=== PATIENT | female | born 1945 | race Caucasian/White ===

== ENCOUNTER → 2018-11-02 | Outpatient (CLI) | payer MEDICARE ==
--- NOTE | 2018-11-02 11:12 | RAD ---
EXAM: PA and Lateral Views of the Chest DATE: 11/02/2018 12:00 AM INDICATION: Cough, shortness of air COMPARISON: No Prior FINDINGS: The heart is not enlarged. Atherosclerotic calcifications of the tortuous aorta are seen. Linear opacities are seen bilaterally. No lobar consolidation. No pleural effusion or pneumothorax. IMPRESSION: Bilateral linear opacities, possibly scarring/atelectasis although given the interstitial predominance may also represent atypical infectious/inflammatory process. Electronically signed by: Franc Kirby MD (11/02/2018 11:09 AM) [facility]
== END | disposition home or self-care (01) ==
LOC: RAD 09:57
PROVIDERS: ATTEND Internal Medicine Pulmonary Disease
DX: R05 Cough (principal); I70.0 Atherosclerosis of aorta
CPT/HCPCS: 71046

== ENCOUNTER 2019-03-28 15:08 | Inpatient (IN) | payer MEDICARE ==
[~2019-03-28] VITALS: Ht 149.9 cm; Wt 77.8 kg
[2019-03-28] MEDS ORDERED: ONDANSETRON PF 4 MG/2 ML VIAL. IV ONE (15:45)
[2019-03-28 15:48] LABS: BASO # 0.1 x10^3/uL (0.0-0.2); BASO % 1 % (0-3); EOS # 0.2 x10^3/uL (0.0-0.7); EOS % 2 % (0-3); HEMOGLOBIN 12.4 g/dL (12.0-15.5); LYMPH # 2.2 x10^3/uL (1.0-4.8); LYMPH % 18 % (24-48); MEAN CORPUSCULAR HEMOGLOBIN 27 pg (25-35); MEAN CORPUSCULAR HGB CONC 33 g/dL (31-37); MEAN CORPUSCULAR VOLUME 82 fL (79-100); MONO % 8 % (0-9); NEUT # 8.6 x10^3/uL (1.8-7.7); NEUT % 71 % (31-73); PLATELET COUNT 355 x10^3/uL (140-400); RED BLOOD COUNT 4.62 x10^6/uL (3.50-5.40); RED CELL DISTRIBUTION WIDTH 14.9 % (11.5-14.5)
--- NOTE | 2019-03-28 15:49 | PHYS DOC ---
Past Medical History Past Medical History: Depression, DVT, Fibromyalgia, High Cholesterol, Hypertension, Hypothyroid, Other Additional Past Medical Histor: sarcoidosis, HEP B positive, TB positive in 1970s, pneumothorax, PE Past Surgical History: Other Additional Past Surgical Histo: cardiac stent, back surgery, bilateral cateract removal Alcohol Use: Occasionally Drug Use: None Adult General Chief Complaint Chief Complaint: CHEST PAIN [facility] HPI Patient is a 73 year old female who presents by EMS with complaining of chest pain. Patient states she had sudden onset of nonexertional substernal chest pain that started about 2 hours prior to arrival as a sharp and constant pain with radiation to her back and associated with nausea, shortness of breath, dizziness and rated her pain 10 over 10. Patient states she took nitroglycerin x 3 without change of pain. Patient state EMS gave her 50 g of nasal fentanyl with improvement of her pain to 6/10. Patient had aspirin by herself in by EMS. Patient with she felt anxious and didn't feel good with shortness of breath twic e ago for several hours and didn't had a fall at shower and hit the left side of her chest and complaining of chest wall pain that getting worse with movement and breathing. Patient was seen by her primary care physician today regarding chest wall injury and had x-ray and EKG and was told that she doesn't have rib fracture. Patient states she has had episodes of mild chest pain previously but today her pain was worse than her usual. Review of Systems Review of Systems Constitutional: Denies fever or chills [] Eyes: Denies change in visual acuity, redness, or eye pain [] HENT: Denies nasal congestion or sore throat [] Respiratory: Denies cough reports shortness of breath [] Cardiovascular: No additional information not addressed in HPI [] GI: Denies abdominal pain, vomiting, bloody stools or diarrhea, reports nausea [] : Denies dysuria or hematuria [] Musculoskeletal: Denies back pain or joint pain [] Integument: Denies rash or skin lesions [] Neurologic: Denies headache, focal weakness or sensory changes [] Endocrine: Denies polyuria or polydipsia [] All other systems were reviewed and found to be within normal limits, except as documented in this note. Current Medications Current Medications Current Medications Medications (Trade) Dose Ordered Sig/Lexii Start Time Stop Time Status Last Admin Dose Admin Ondansetron HCl (Zofran) 4 mg 1X ONCE 03/28/19 15:45 03/28/19 15:46 DC 03/28/19 16:23 4 MG Allergies Allergies Allergies Coded Allergies Type Severity Reaction Last Updated Verified Penicillins Allergy Intermediate 03/28/19 Yes Soivrop-Pom-Ybd Reductase Inhibitor Allergy Intermediate 03/28/19 Yes adhesive tape Allergy Intermediate 03/28/19 Yes ampicillin Allergy Intermediate 03/28/19 Yes aripiprazole Allergy Intermediate 03/28/19 Yes atorvastatin Allergy Intermediate 03/28/19 Yes bupropion Allergy Intermediate 03/28/19 Yes cephalexin Allergy Intermediate 03/28/19 Yes divalproex sodium Allergy Intermediate 03/28/19 Yes gatifloxacin Allergy Intermediate 03/28/19 Yes latex Allergy Intermediate 03/28/19 Yes oxaprozin Allergy Intermediate 03/28/19 Yes rofecoxib Allergy Intermediate 03/28/19 Yes tetracycline Allergy Intermediate 03/28/19 Yes Uncoded Allergies Type Severity Reaction Last Updated Verified bandaids Allergy Unknown 03/28/19 myacins Allergy Unknown 03/28/19 Physical Exam Physical Exam Constitutional: Well developed, well nourished, mild distress, non-toxic appearance. [] HENT: Normocephalic, atraumatic. Eyes: PERRLA, EOMI, conjunctiva normal, no discharge. [] Neck: Normal range of motion, no tenderness, supple, no stridor. [] Cardiovascular:Heart rate regular rhythm, no murmur [] Lungs & Thorax: Bilateral breath sounds clear to auscultation, left lateral chest wall tenderness without emphysema or ecchymosis [] Abdomen: Bowel sounds normal, soft, no tenderness, no masses, no pulsatile masses. [] Skin: Warm, dry, no erythema, no rash. [] Back: No tenderness, no CVA tenderness. [] Extremities: No tenderness, no cyanosis, no clubbing, ROM intact, no edema. [] Neurologic: Alert and oriented X 3, no focal deficits noted. [] Psychologic: Affect normal, judgement normal, mood normal. [] Current Patient Data Vital Signs Vital Signs Date Time Temp Pulse Resp B/P (MAP) Pulse Ox O2 Delivery O2 Flow Rate FiO2 03/28/19 15:13 98.2 81 23 121/72 (88) 95 98.2 Lab Values Laboratory Tests Test 03/28/19 15:40 White Blood Count 12.0 x10^3/uL (4.0-11.0) H Red Blood Count 4.62 x10^6/uL (3.50-5.40) Hemoglobin 12.4 g/dL (12.0-15.5) Hematocrit 38.0 % (36.0-47.0) Mean Corpuscular Volume 82 fL (79-100) Mean Corpuscular Hemoglobin 27 pg (25-35) Mean Corpuscular Hemoglobin Concent 33 g/dL (31-37) Red Cell Distribution Width 14.9 % (11.5-14.5) H Platelet Count 355 x10^3/uL (140-400) Neutrophils (%) (Auto) 71 % (31-73) Lymphocytes (%) (Auto) 18 % (24-48) L Monocytes (%) (Auto) 8 % (0-9) Eosinophils (%) (Auto) 2 % (0-3) Basophils (%) (Auto) 1 % (0-3) Neutrophils # (Auto) 8.6 x10^3/uL (1.8-7.7) H Lymphocytes # (Auto) 2.2 x10^3/uL (1.0-4.8) Monocytes # (Auto) 1.0 x10^3/uL (0.0-1.1) Eosinophils # (Auto) 0.2 x10^3/uL (0.0-0.7) Basophils # (Auto) 0.1 x10^3/uL (0.0-0.2) D-Dimer (Charity) < 0.27 ug/mlFEU Sodium Level 138 mmol/L (136-145) Potassium Level 3.6 mmol/L (3.5-5.1) Chloride Level 101 mmol/L (98-107) Carbon Dioxide Level 27 mmol/L (21-32) Anion Gap 10 (6-14) Blood Urea Nitrogen 31 mg/dL (7-20) H Creatinine 1.6 mg/dL (0.6-1.0) H Estimated GFR (Cockcroft-Gault) 31.7 BUN/Creatinine Ratio 19 (6-20) Glucose Level 130 mg/dL (70-99) H Calcium Level 9.8 mg/dL (8.5-10.1) Magnesium Level 1.9 mg/dL (1.8-2.4) Total Bilirubin 0.2 mg/dL (0.2-1.0) Aspartate Amino Transferase (AST) 22 U/L (15-37) Alanine Aminotransferase (ALT) 23 U/L (14-59) Alkaline Phosphatase 95 U/L (46-116) Creatine Kinase 151 U/L (26-192) Troponin I Quantitative < 0.017 ng/mL (0.000-0.055) KF-Ovi-E-Type Natriuretic Peptide 67 pg/mL (0-124) Total Protein 8.3 g/dL (6.4-8.2) H Albumin 4.1 g/dL (3.4-5.0) Albumin/Globulin Ratio 1.0 (1.0-1.7) Lipase 94 U/L (73-393) Laboratory Tests 03/28/19 15:40 Laboratory Tests 03/28/19 15:40 EKG EKG EKG interpreted by me. EKG at 1550 showed normal sinus rhythm at rate of 78, inverted T in anterior and inferior leads, no acute ST and T-wave elevation Radiology/Procedures Radiology/Procedures [][facility] [address] [place], [place] [id number] IMAGING REPORT Signed PATIENT: ANNA STROUD ACCOUNT: [id number] : 1945 LOCATION: ER AGE: 73 SEX: F EXAM STATUS: REG ER ORD. PHYSICIAN: VICTOR M CHAVARRIA MD REASON: fall,Pt states chest pain and left mid,lower rib pain, fell Tuesday PROCEDURE: RIBS LEFT AND PA CHEST Three-view left rib detail series and PA view chest x-ray Clinical indications: Fall and chest pain of the mid and lower left side. FINDINGS: There is a nondisplaced fractures of the lateral aspect of the left third and fourth and fifth ribs. Chest x-ray demonstrates no acute lung infiltrate or pleural effusion or pneumothorax. The heart size and pulmonary vasculature and mediastinum and both amanda are unremarkable. IMPRESSION: Acute left rib cage fractures. Electronically signed by: Christin Rivera MD (03/28/2019 4:09 PM) [place] [id number] DICTATED and SIGNED BY: CHRISTIN RIVERA MD DATE: 03/28/19 160 Course & Med Decision Making Course & Med Decision Making Pertinent Labs and Imaging studies reviewed. (See chart for details) Evaluation of patient in ER showed 73-year-old female patient with heart score of 6 brought in by EMS because of chest pain and also had a chest wall injury 3 days ago. Patient had several left hip fracture. Patient treated with ni troglycerin at home and fentanyl by EMS and didn't want to have pain medication in ER. Cardiac enzymes was unremarkable.Patient requiring admission for further evaluation and treatment. Discussed with Dr. Allison who is in agreement with admission. Discussed findings and plan with patient and family, who acknowledge understanding and agreement. Dragon Disclaimer Dragon Disclaimer This electronic medical record was generated, in whole or in part, using a voice recognition dictation system. Departure Departure Impression: Primary Impression: Acute chest pain Additional Impressions: Ribs, multiple fractures Renal insufficiency Fall at home Disposition: ADMITTED INPATIENT (at 1620) Admitting Physician: DARRELL (Dr. Allison accepted admission at 1619) Condition: IMPROVED Referrals: JOE KITCHEN MD (PCP) The HEART Score for CP Pts HEART Score for Chest Pain: HEART Score for Chest Pain Response (Comments) Value History Moderately Suspicious 1 ECG Nonspecific Repolarizatio 1 Age > 65 2 Risk Factors >3 Risk Factors or Hx CAD 2 Troponin < Normal Limit 0 Total 6 Risk Factors: Risk Factors: DM, Current or recent (<one month) smoker, HTN, HLP, family history of CAD, obesity. Risk Scores: Score 0 - 3: 2.5% MACE over next 6 weeks - Discharge Home Score 4 - 6: 20.3% MACE over next 6 weeks - Admit for Clinical Observation Score 7 - 10: 72.7% MACE over next 6 weeks - Early Invasive Strategies Problem Qualifiers Additional Impressions: Ribs, multiple fractures Encounter type: sequela Fracture type: closed Laterality: left Qualified Codes: S22.42XS - Multiple fractures of ribs, left side, sequela Fall at home Encounter type: subsequent encounter Qualified Codes: W19.XXXD - Unspecified fall, subsequent encounter; Y92.009 - Unspecified place in unspecified non-institutional (private) residence as the place of occurrence of the external cause VICTOR M CHAVARRIA MD Mar 28, 2019 15:49
[2019-03-28 16:11] LABS: CALCIUM 9.8 mg/dL (8.5-10.1); CREATININE 1.6 mg/dL (0.6-1.0); GFR 31.7; POTASSIUM 3.6 mmol/L (3.5-5.1)
--- NOTE | 2019-03-28 16:12 | RAD ---
Three-view left rib detail series and PA view chest x-ray Clinical indications: Fall and chest pain of the mid and lower left side. FINDINGS: There is a nondisplaced fractures of the lateral aspect of the left third and fourth and fifth ribs. Chest x-ray demonstrates no acute lung infiltrate or pleural effusion or pneumothorax. The heart size and pulmonary vasculature and mediastinum and both amanda are unremarkable. IMPRESSION: Acute left rib cage fractures. Electronically signed by: Darell Rivera MD (03/28/2019 4:09 PM) [place] [id number]
[2019-03-28 16:17] LABS: ALBUMIN 4.1 g/dL (3.4-5.0); MAGNESIUM 1.9 mg/dL (1.8-2.4); TOTAL BILIRUBIN 0.2 mg/dL (0.2-1.0); TOTAL PROTEIN 8.3 g/dL (6.4-8.2)
--- NOTE | 2019-03-28 16:20 | PDOC1 ---
History and Physical Date of Admission Date of Admission DATE: 03/28/19 TIME: 16:19 Identification/Chief Complaint Chief Complaint SEEN IN ER, HX CAD /// STENT IN [place] 73 year old female who presents by EMS with complaining of chest pain. states she had sudden onset of nonexertional substernal chest pain that started about 2 hours prior to arrival as a sharp and constant pain with radiation to her back and associated with nausea, shortness of breath, dizziness and rated her pain 10 over 10. she took nitroglycerin x 3 without change of pain. Patient state EMS gave her 50 g of nasal fentanyl with improvement of her pain to 6/10. troponin i neg in er Past Medical History Past Medical History Past Medical History Past Medical History Past Medical History: Depression, DVT, Fibromyalgia, High Cholesterol, Hypertension, Hypothyroid, Other Additional Past Medical Histor: sarcoidosis, HEP B positive, TB positive in 1970s, pneumothorax, PE Past Surgical History: Other Additional Past Surgical Histo: cardiac stent, back surgery, bilateral cateract removal Alcohol Use: Occasionally Drug Use: None fhx cad Cardiovascular: CAD, Hyperlipidemia Hepatobiliary: No pertinent hx Musculoskeletal: Osteoarthritis Family History Family History: High Cholestrol Social History Smoke: Quit ALCOHOL: none Drugs: None Current Medications Current Medications Current Medications Ondansetron HCl (Zofran) 4 mg 1X ONCE IV ; Start 03/28/19 at 15:45; Stop 03/28/19 at 15:46; Status DC Allergies Allergies: Coded Allergies: Penicillins (Verified Allergy, Intermediate, 03/28/19) Fedkhxd-Skr-Fza Reductase Inhibitor (Verified Allergy, Intermediate, 03/28/19) adhesive tape (Verified Allergy, Intermediate, 03/28/19) ampicillin (Verified Allergy, Intermediate, 03/28/19) aripiprazole (Verified Allergy, Intermediate, 03/28/19) atorvastatin (Verified Allergy, Intermediate, 03/28/19) bupropion (Verified Allergy, Intermediate, 03/28/19) cephalexin (Verified Allergy, Intermediate, 03/28/19) divalproex sodium (Verified Allergy, Intermediate, 03/28/19) gatifloxacin (Verified Allergy, Intermediate, 03/28/19) latex (Verified Allergy, Intermediate, 03/28/19) oxaprozin (Verified Allergy, Intermediate, 03/28/19) rofecoxib (Verified Allergy, Intermediate, 03/28/19) tetracycline (Verified Allergy, Intermediate, 03/28/19) Uncoded Allergies: bandaids (Allergy, Unknown, 03/28/19) myacins (Allergy, Unknown, 03/28/19) ROS Review of System Review of Systems Review of Systems Constitutional: Denies fever or chills [] Eyes: Denies change in visual acuity, redness, or eye pain [] HENT: Denies nasal congestion or sore throat [] Respiratory: Denies cough reports shortness of breath [] Cardiovascular: No additional information not addressed in HPI [] GI: Denies abdominal pain, vomiting, bloody stools or diarrhea, reports nausea [] : Denies dysuria or hematuria [] Musculoskeletal: Denies back pain or joint pain [] Integument: Denies rash or skin lesions [] Neurologic: Denies headache, focal weakness or sensory changes [] Endocrine: Denies polyuria or polydipsia [] 14 pt systems were reviewed and found to be within normal limits, except as documented . Physical Exam General: Alert, Oriented X3, Cooperative, No acute distress HEENT: PERRLA Lungs: Clear to auscultation, Normal air movement Heart: S1S2, RRR, no thrills, no gallops, no murmurs Breasts: Not examined Abdomen: Normal bowel sounds, Soft, No tenderness Rectal Exam: not examined PELVIC: Examination not indicated Extremities: No clubbing, No cyanosis Skin: No breakdown Neuro: Normal speech, Cranial nerves 3-12 NL Psych/Mental Status: Mental status NL, Mood NL Vitals Vitals Vital Signs Date Time Temp Pulse Resp B/P (MAP) Pulse Ox O2 Delivery O2 Flow Rate FiO2 03/28/19 15:13 98.2 81 23 121/72 (88) 95 98.2 Labs Labs Laboratory Tests Test 03/28/19 15:40 White Blood Count 12.0 x10^3/uL (4.0-11.0) Red Blood Count 4.62 x10^6/uL (3.50-5.40) Hemoglobin 12.4 g/dL (12.0-15.5) Hematocrit 38.0 % (36.0-47.0) Mean Corpuscular Volume 82 fL (79-100) Mean Corpuscular Hemoglobin 27 pg (25-35) Mean Corpuscular Hemoglobin Concent 33 g/dL (31-37) Red Cell Distribution Width 14.9 % (11.5-14.5) Platelet Count 355 x10^3/uL (140-400) Neutrophils (%) (Auto) 71 % (31-73) Lymphocytes (%) (Auto) 18 % (24-48) Monocytes (%) (Auto) 8 % (0-9) Eosinophils (%) (Auto) 2 % (0-3) Basophils (%) (Auto) 1 % (0-3) Neutrophils # (Auto) 8.6 x10^3/uL (1.8-7.7) Lymphocytes # (Auto) 2.2 x10^3/uL (1.0-4.8) Monocytes # (Auto) 1.0 x10^3/uL (0.0-1.1) Eosinophils # (Auto) 0.2 x10^3/uL (0.0-0.7) Basophils # (Auto) 0.1 x10^3/uL (0.0-0.2) D-Dimer (Charity) < 0.27 ug/mlFEU Sodium Level 138 mmol/L (136-145) Potassium Level 3.6 mmol/L (3.5-5.1) Chloride Level 101 mmol/L (98-107) Carbon Dioxide Level 27 mmol/L (21-32) Anion Gap 10 (6-14) Blood Urea Nitrogen 31 mg/dL (7-20) Creatinine 1.6 mg/dL (0.6-1.0) Estimated GFR (Cockcroft-Gault) 31.7 BUN/Creatinine Ratio 19 (6-20) Glucose Level 130 mg/dL (70-99) Calcium Level 9.8 mg/dL (8.5-10.1) Laboratory Tests Test 03/28/19 15:40 White Blood Count 12.0 x10^3/uL (4.0-11.0) Red Blood Count 4.62 x10^6/uL (3.50-5.40) Hemoglobin 12.4 g/dL (12.0-15.5) Hematocrit 38.0 % (36.0-47.0) Mean Corpuscular Volume 82 fL (79-100) Mean Corpuscular Hemoglobin 27 pg (25-35) Mean Corpuscular Hemoglobin Concent 33 g/dL (31-37) Red Cell Distribution Width 14.9 % (11.5-14.5) Platelet Count 355 x10^3/uL (140-400) Neutrophils (%) (Auto) 71 % (31-73) Lymphocytes (%) (Auto) 18 % (24-48) Monocytes (%) (Auto) 8 % (0-9) Eosinophils (%) (Auto) 2 % (0-3) Basophils (%) (Auto) 1 % (0-3) Neutrophils # (Auto) 8.6 x10^3/uL (1.8-7.7) Lymphocytes # (Auto) 2.2 x10^3/uL (1.0-4.8) Monocytes # (Auto) 1.0 x10^3/uL (0.0-1.1) Eosinophils # (Auto) 0.2 x10^3/uL (0.0-0.7) Basophils # (Auto) 0.1 x10^3/uL (0.0-0.2) D-Dimer (Charity) < 0.27 ug/mlFEU Sodium Level 138 mmol/L (136-145) Potassium Level 3.6 mmol/L (3.5-5.1) Chloride Level 101 mmol/L (98-107) Carbon Dioxide Level 27 mmol/L (21-32) Anion Gap 10 (6-14) Blood Urea Nitrogen 31 mg/dL (7-20) Creatinine 1.6 mg/dL (0.6-1.0) Estimated GFR (Cockcroft-Gault) 31.7 BUN/Creatinine Ratio 19 (6-20) Glucose Level 130 mg/dL (70-99) Calcium Level 9.8 mg/dL (8.5-10.1) Images Images Three-view left rib detail series and PA view chest x-ray Clinical indications: Fall and chest pain of the mid and lower left side. FINDINGS: There is a nondisplaced fractures of the lateral aspect of the left third and fourth and fifth ribs. Chest x-ray demonstrates no acute lung infiltrate or pleural effusion or pneumothorax. The heart size and pulmonary vasculature and mediastinum and both amanda are unremarkable. IMPRESSION: Acute left rib cage fractures. Electronically signed by: Christin Rivera MD (03/28/2019 4:09 PM) [place] [id number] DICTATED and SIGNED BY: CHRISTIN RIVERA MD VTE Prophylaxis Ordered VTE Prophylaxis Devices: Yes VTE Pharmacological Prophylaxi: Yes Assessment/Plan Assessment/Plan IMPRESSION: CHEST PAIN HX CAD Recent fall in shower 2 days [employer] Acute left rib cage fractures. SEC TO FALL ckd stage 3 remote PE ON XARELTO PLAN ADMIT SERIAL TROPONIN I TELE, cvc bed Cardiology consult echo frequent labs home meds dvt prophylaxis 55 min pt exam, chart review, > 50% of time spent with exam, chart review, pt care coordination ALEJANDRO RODRIGUEZ MD Mar 28, 2019 16:20
[2019-03-28] MEDS ORDERED: fentaNYL PF VIAL 100 MCG/2 ML VIAL ONE (16:49)
[2019-03-28] MEDS ORDERED: fentaNYL PF VIAL 100 MCG/2 ML VIAL IVP ONE (17:00)
[2019-03-28 17:40] VITALS: BP 151/87
[2019-03-28] MEDS ORDERED: ONDANSETRON PF 4 MG/2 ML VIAL. IVP PRN (17:45)
[2019-03-28] MEDS ORDERED: ACET325T9 PO (18:20)
[2019-03-28] MEDS ORDERED: LOPE2CAP PO (18:20)
[2019-03-28] MEDS ORDERED: LOSA100T14 PO (18:20)
[2019-03-28] MEDS ORDERED: NITR0.4T24 SL (18:20)
[2019-03-28] MEDS ORDERED: ISOS30TA4 PO (18:20)
[2019-03-28] MEDS ORDERED: ESCITALOPRAM OX20 MG PO (18:20)
[2019-03-28] MEDS ORDERED: LEVO100T5 PO (18:20)
[2019-03-28] MEDS ORDERED: AMLO10TA8 PO (18:20)
[2019-03-28] MEDS ORDERED: TRAZ-86 PO (18:20)
[2019-03-28] MEDS ORDERED: ASPI-630 PO (18:20)
[2019-03-28] MEDS ORDERED: RIVA20TA2 PO (18:20)
[2019-03-28] MEDS ORDERED: METO-247 PO (18:20)
[2019-03-28] MEDS ORDERED: HYDR-2761 PO (18:20)
[2019-03-28] MEDS ORDERED: MELA3TAB56 PO (18:20)
[2019-03-28] MEDS ORDERED: cloNIDine HCL 0.1 MG TABLET PO PRN (18:30)
[2019-03-28] MEDS ORDERED: 0.9 % SODIUM CHLORIDE 10 ML DISP.SYRIN. IV PRN (18:30)
[2019-03-28] MEDS ORDERED: ACETAMINOPHEN 325 MG TABLET. PO PRN ×2 (18:30→19:15)
[2019-03-28] MEDS ORDERED: MAG HYDROX/ALUMINUM HYD/SIMETH 30 ML ORAL.SUSP PO PRN (18:30)
[2019-03-28] MEDS ORDERED: LORazepam 0.5 MG TABLET PO PRN (18:30)
[2019-03-28] MEDS ORDERED: ZOLPIDEM 5 MG TABLET. PO PRN (18:30)
[2019-03-28] MEDS ORDERED: DOCUSATE SODIUM 100 MG CAPSULE. PO PRN (18:30)
[2019-03-28 18:46] VITALS: BP 116/82
[2019-03-28] MEDS ORDERED: NITROGLYCERIN SUBLINGUAL 0.4 MG BOTTLE OF 25. SL PRN (19:15)
[2019-03-28] MEDS ORDERED: LOPERAMIDE 2 MG CAPSULE PO PRN (19:15)
[2019-03-28] MEDS: IPRATRPIUM/ALBUTEROL 0.5/2.5MG 3 ML NEBU. NEB SCH ×2 (19:34→23:41)
[2019-03-28] MEDS ORDERED: DESI10TA PO (19:47)
[2019-03-28] MEDS ORDERED: DESIPRAMINE HCL 10 MG TABLET PO SCH (21:00)
[2019-03-28] MEDS: traZODone 100 MG TABLET. PO SCH (21:32)
[2019-03-28 21:47] LABS: BILIRUBIN,URINE NEGATIVE (NEG); CLARITY,URINE CLOUDY; COLOR,URINE YELLOW; NITRITE,URINE POSITIVE (NEG); PROTEIN,URINE 30 mg/dL (NEG-TRACE); UROBILINOGEN,URINE 0.2 mg/dL (0.2 mg/dL)
[2019-03-28 21:55] LABS: BACTERIA,URINE MANY /HPF (0-FEW); SQUAMOUS EPITHELIAL CELL,UR MANY /LPF; WBC,URINE TNTC /HPF (0-4)
[2019-03-28 21:56] LABS: HYALINE CASTS, URINE OCCASIONAL /HPF
[2019-03-28 23:01] VITALS: BP 119/68
[2019-03-29 03:00] VITALS: BP 99/56
[2019-03-29] MEDS: IPRATRPIUM/ALBUTEROL 0.5/2.5MG 3 ML NEBU. NEB SCH (04:00)
[2019-03-29] MEDS: fentaNYL PF VIAL 100 MCG/2 ML VIAL IVP PRN ×2 (04:00→10:54)
[2019-03-29] MEDS ORDERED: INFLUENZA VAX SCREEN BY RX. MC PRN (04:45)
[2019-03-29 05:39] LABS: BASO % 0 % (0-3); EOS # 0.2 x10^3/uL (0.0-0.7); EOS % 3 % (0-3); HEMATOCRIT 36.4 % (36.0-47.0); HEMOGLOBIN 12.1 g/dL (12.0-15.5); LYMPH % 46 % (24-48); MEAN CORPUSCULAR HEMOGLOBIN 27 pg (25-35); MEAN CORPUSCULAR HGB CONC 33 g/dL (31-37); MEAN CORPUSCULAR VOLUME 83 fL (79-100); MONO # 0.7 x10^3/uL (0.0-1.1); MONO % 8 % (0-9); NEUT # 3.9 x10^3/uL (1.8-7.7); NEUT % 44 % (31-73); PLATELET COUNT 309 x10^3/uL (140-400); WHITE BLOOD COUNT 8.8 x10^3/uL (4.0-11.0)
[2019-03-29 05:52] LABS: CALCIUM 9.3 mg/dL (8.5-10.1); CREATININE 1.1 mg/dL (0.6-1.0); GFR 48.8
[2019-03-29 05:57] LABS: ALBUMIN 3.7 g/dL (3.4-5.0); ALBUMIN/GLOBULIN RATIO 0.9 (1.0-1.7); TOTAL BILIRUBIN 0.3 mg/dL (0.2-1.0); TOTAL PROTEIN 7.8 g/dL (6.4-8.2)
[2019-03-29] MEDS: LEVOTHYROXINE 100 MCG TABLET PO SCH (06:24)
[2019-03-29 07:00] VITALS: BP 135/69
--- NOTE | 2019-03-29 07:26 | EKG ---
[facility] [address] [place] [address] Test Date: 2019-03-28 Test Time: 15:15:12 Pat Name: ANNA STROUD Department: Room: 205 1 Gender: F Account Planner: : 1945 Requested By: VICTOR M CHAVARRIA Order Number: [id number] Reading MD: Nathanael Pettit MD Measurements Intervals [place] Rate: 78 P: 65 [place]: 190 QRS: 21 QRSD: 94 T: -15 QT: 378 QTc: 434 Interpretive Statements SINUS RHYTHM QRS(T) CONTOUR ABNORMALITY CONSISTENT WITH INFERIOR INFARCT AGE UNDETERMINED T ABNORMALITY IN ANTERIOR LEADS ABNORMAL ECG Electronically Signed On 04-03-2019 15:38:29 CDT by Nathanael Pettit MD
[2019-03-29] MEDS ORDERED: ALBUTEROL SULFATE 2.5 MG/3 ML NEBU. NEB PRN (08:15)
[2019-03-29] MEDS ORDERED: FLU VAX QS 2019-20 (36MOS+)/PF 0.5 ML SYRINGE. VAX IM ONE (09:00)
[2019-03-29] MEDS ORDERED: ENOXAPARIN 40 MG/0.4 ML SYRINGE. SQ SCH (09:00)
[2019-03-29] MEDS: ISOSORBIDE MONONITRATE ER 30 MG TAB.ER.24H PO SCH (09:41)
[2019-03-29] MEDS: METOPROLOL SUCC 24HR ER 100 MG TAB.ER.24H. PO SCH (09:41)
[2019-03-29] MEDS: ASPIRIN CHEWABLE 81 MG TABLET. PO SCH (09:41)
[2019-03-29] MEDS: amLODIPine BESYLATE 10 MG TABLET PO SCH (09:41)
[2019-03-29] MEDS: CITALOPRAM 20 MG TABLET. PO SCH (09:42)
[2019-03-29] MEDS: LOSARTAN POTASSIUM 50 MG TABLET. PO SCH (09:42)
--- NOTE | 2019-03-29 10:33 | RAD ---
CT HEAD WO CONTRAST History: Headache, fall Comparison: None. Technique: Noncontrast CT imaging was performed of the head. Exposure: One or more of the following individualized dose reduction techniques were utilized for this examination: 1. Automated exposure control 2. Adjustment of the mA and/or kV according to patient size 3. Use of iterative reconstruction technique. Findings: No acute extra-axial or parenchymal hemorrhage is identified. There is no significant intra-axial mass effect, midline shift, or extra-axial fluid collection. The mauricio-white differentiation of the major vascular territories is preserved. There is scattered moderate ill-defined low-density of the supratentorial parenchyma bilaterally somewhat greater of the frontal lobes. The ventricles, sulci, and cisterns are within normal limits in size and configuration. The mastoid air cells and the visualized paranasal sinuses are aerated. No acute calvarial abnormality is identified. Impression: 1. There is no evidence of acute intracranial hemorrhage. There is scattered ill-defined low-density of the supratentorial parenchyma bilaterally, nonspecific findings most commonly due to chronic microvascular ischemic disease in a patient this age. Electronically signed by: Olaf Spencer MD (03/29/2019 10:30 AM) [facility]
--- NOTE | 2019-03-29 10:35 | PDOC2 ---
CINDI SELBY [employer] MA[employer]GER 03/29/19 1035: CARDIAC CONSULT DATE OF CONSULT Date of Consult DATE: 03/29/19 TIME: 0900 REASON FOR CONSULT Reason for Consult: Chest pain REFERRING PHYSICIAN Referring Physician: Fullbright SOURCE Source: Chart review, Patient HISTORY OF PRESENT ILLNESS HISTORY OF PRESENT ILLNESS This is a pleasant 73 yo female admitted for complains of fall and chest pain. Her chest pain occurred 2 days ago. She was having midchest pressure that was nonradidating and sensation of indigestion. Also was diaphoretic at that time. She took x1 NTG SL and decided to get in the tub which she thought it may help her discomfort. Also notable for nausea. She then got out of the tub and slipped and landed her left ribcage at the edge of the tub. After that she developed bruis to her left upper arm and left ribcage and also obtain a contusion to her left anterior finch but no no noted fractures or dislocations. Her ROMs are intact. Also reports of left temporal tenderness but she doesnt believe she hit her head. 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 She also had a stent placed in 2008. In the last month she has been having more fatigue and also with some SOA with exertion but no exertional CP. Yesterday she went to her PCP due to her chest pain and ribcage pain and EKG and CXR but no copy was in the chart. She was told that she did not have a rib fracture but repeat imaging in ED showed that she has nondisplaced rib fractures. Her chest pressure yesterday came back with the same associated symptoms and she took 3 NTG and decided to come to ED. PAST MEDICAL HISTORY Cardiovascular: CAD, HTN, Hyperlipidemia (intolerant to statins) Pulmonary: Pulmonary embolus (2010), Other (TB in ; sarcoidosis; pneumothorax) CENTRAL NERVOUS SYSTEM: CVA, Migraine GI: No pertinent hx Heme/Onc: Other (multiple past DVTs) Hepatobiliary: No pertinent hx, Hep A/B/C (B) Psych: Depression Musculoskeletal: low back pain, Osteoarthritis, Other (failed back syndrome) Rheumatologic: Fibromyalgia Infectious disease: No pertinent hx ENT: No pertinent hx Renal/: No pertinent hx Endocrine: Hypothyroidism Dermatology: No pertinent hx PAST SURGICAL HISTORY Past Surgical History: Cataract Removal, Other (PCI/stent 2009; Lumbar fusion; lung biopsy) FAMILY HISTORY Family History: Coronary Artery Disease (mother in her 40s) SOCIAL HISTORY Smoke: No ALCOHOL: none Drugs: None Lives: with Family CURRENT MEDICATIONS CURRENT MEDICATIONS Current Medications Medications (Trade) Dose Ordered Sig/Lexii Route PRN Reason Start Time Stop Time Status Last Admin Dose Admin Ondansetron HCl (Zofran) 4 mg 1X ONCE IV 03/28/19 15:45 03/28/19 15:46 DC 03/28/19 16:23 Fentanyl Citrate (Fentanyl 2ml Vial) 50 mcg 1X ONCE IVP 03/28/19 17:00 03/28/19 17:01 DC 03/28/19 16:52 Fentanyl Citrate (Fentanyl 2ml Vial) 50 mcg PRN Q2HR PRN IVP PAIN 03/28/19 17:45 03/29/19 04:00 Albuterol/ Ipratropium (Duoneb) 3 ml Q4HRS NEB 03/28/19 20:00 03/29/19 07:40 DC 03/29/19 04:00 Amlodipine Besylate (Norvasc) 10 mg DAILY PO 03/29/19 09:00 03/29/19 09:41 Aspirin (Children'S Aspirin) 81 mg DAILY PO 03/29/19 09:00 03/29/19 09:41 Isosorbide Mononitrate (Imdur) 30 mg DAILY PO 03/29/19 09:00 03/29/19 09:41 Levothyroxine Sodium (Synthroid) 100 mcg DAILY06 PO 03/29/19 06:00 03/29/19 06:24 Metoprolol Succinate (Toprol Xl) 100 mg DAILY PO 03/29/19 09:00 03/29/19 09:41 Trazodone HCl (Desyrel) 100 mg HS PO 03/28/19 21:00 03/28/19 21:32 Citalopram Hydrobromide (CeleXA) 40 mg DAILY PO 03/29/19 09:00 03/29/19 09:42 Losartan Potassium (Cozaar) 100 mg DAILY PO 03/29/19 09:00 03/29/19 09:42 Influenza Virus Vaccine Quadrival (Afluria Quad 2019-20 (3yr Up) Syringe) 0.5 ml ONCE ONCE VAX IM 03/29/19 09:00 03/29/19 09:05 DC 03/29/19 09:44 ALLERGIES ALLERGIES: Coded Allergies: Penicillins (Verified Allergy, Intermediate, 03/28/19) Didvhfx-Wlu-Add Reductase Inhibitor (Verified Allergy, Intermediate, 03/28/19) adhesive tape (Verified Allergy, Intermediate, 03/28/19) ampicillin (Verified Allergy, Intermediate, 03/28/19) aripiprazole (Verified Allergy, Intermediate, 03/28/19) atorvastatin (Verified Allergy, Intermediate, 03/28/19) bupropion (Verified Allergy, Intermediate, 03/28/19) cephalexin (Verified Allergy, Intermediate, 03/28/19) divalproex sodium (Verified Allergy, Intermediate, 03/28/19) gatifloxacin (Verified Allergy, Intermediate, 03/28/19) latex (Verified Allergy, Intermediate, 03/28/19) oxaprozin (Verified Allergy, Intermediate, 03/28/19) rofecoxib (Verified Allergy, Intermediate, 03/28/19) tetracycline (Verified Allergy, Intermediate, 03/28/19) Uncoded Allergies: bandaids (Allergy, Unknown, 03/28/19) myacins (Allergy, Unknown, 03/28/19) ROS Review of System 14 point ROS evaluated with pertinent positives noted per HPI PHYSICAL EXAM General: Alert, Oriented X3, Cooperative, No acute distress HEENT: Atraumatic, Mucous membr. moist/pink Lungs: Clear to auscultation, Normal air movement Heart: Regular rate (SR), Normal S1, Normal S2, Other (3/6 systolic murmur to FELIZ border) Abdomen: Soft, No tenderness Extremities: No cyanosis, No edema Skin: No breakdown, No significant lesion Neuro: Normal speech, Sensation intact Psych/Mental Status: Mental status NL, Mood NL MUSCULOSKELETAL: Osteoarthritic changes both hands VITALS/I&O VITALS/I&O: Vital Signs Date Time Temp Pulse Resp B/P (MAP) Pulse Ox O2 Delivery O2 Flow Rate FiO2 03/29/19 09:42 69 135/69 03/29/19 08:00 Room Air 03/29/19 07:00 97.9 18 92 97.9 I & O 03/28/19 03/28/19 03/29/19 15:00 23:00 07:00 Output Total 150 ml Balance -150 ml LABS Lab: Laboratory Tests Test 03/28/19 15:40 03/28/19 20:05 03/28/19 21:40 03/28/19 23:20 White Blood Count 12.0 x10^3/uL (4.0-11.0) H Red Blood Count 4.62 x10^6/uL (3.50-5.40) Hemoglobin 12.4 g/dL (12.0-15.5) Hematocrit 38.0 % (36.0-47.0) Mean Corpuscular Volume 82 fL (79-100) Mean Corpuscular Hemoglobin 27 pg (25-35) Mean Corpuscular Hemoglobin Concent 33 g/dL (31-37) Red Cell Distribution Width 14.9 % (11.5-14.5) H Platelet Count 355 x10^3/uL (140-400) Neutrophils (%) (Auto) 71 % (31-73) Lymphocytes (%) (Auto) 18 % (24-48) L Monocytes (%) (Auto) 8 % (0-9) Eosinophils (%) (Auto) 2 % (0-3) Basophils (%) (Auto) 1 % (0-3) Neutrophils # (Auto) 8.6 x10^3/uL (1.8-7.7) H Lymphocytes # (Auto) 2.2 x10^3/uL (1.0-4.8) Monocytes # (Auto) 1.0 x10^3/uL (0.0-1.1) Eosinophils # (Auto) 0.2 x10^3/uL (0.0-0.7) Basophils # (Auto) 0.1 x10^3/uL (0.0-0.2) D-Dimer (Charity) < 0.27 ug/mlFEU Sodium Level 138 mmol/L (136-145) Potassium Level 3.6 mmol/L (3.5-5.1) Chloride Level 101 mmol/L (98-107) Carbon Dioxide Level 27 mmol/L (21-32) Anion Gap 10 (6-14) Blood Urea Nitrogen 31 mg/dL (7-20) H Creatinine 1.6 mg/dL (0.6-1.0) H Estimated GFR (Cockcroft-Gault) 31.7 BUN/Creatinine Ratio 19 (6-20) Glucose Level 130 mg/dL (70-99) H Calcium Level 9.8 mg/dL (8.5-10.1) Magnesium Level 1.9 mg/dL (1.8-2.4) Total Bilirubin 0.2 mg/dL (0.2-1.0) Aspartate Amino Transferase (AST) 22 U/L (15-37) Alanine Aminotransferase (ALT) 23 U/L (14-59) Alkaline Phosphatase 95 U/L (46-116) Creatine Kinase 151 U/L (26-192) Troponin I Quantitative < 0.017 ng/mL (0.000-0.055) < 0.017 ng/mL (0.000-0.055) < 0.017 ng/mL (0.000-0.055) EB-Fgm-A-Type Natriuretic Peptide 67 pg/mL (0-124) Total Protein 8.3 g/dL (6.4-8.2) H Albumin 4.1 g/dL (3.4-5.0) Albumin/Globulin Ratio 1.0 (1.0-1.7) Lipase 94 U/L (73-393) Urine Collection Type Unknown Urine Color Yellow Urine Clarity Cloudy Urine pH 5.0 Urine Specific [place] 1.025 Urine Protein 30 mg/dL (NEG-TRACE) Urine Glucose (UA) Negative mg/dL (NEG) Urine Ketones (Stick) Negative mg/dL (NEG) Urine Blood Moderate (NEG) Urine Nitrite Positive (NEG) Urine Bilirubin Negative (NEG) Urine Urobilinogen Dipstick 0.2 mg/dL (0.2 mg/dL) Urine Leukocyte Esterase Large (NEG) Urine RBC 1-2 /HPF (0-2) Urine WBC Tntc /HPF (0-4) Urine Squamous Epithelial Cells Many /LPF Urine Bacteria Many /HPF (0-FEW) Urine Hyaline Casts Occasional /HPF Test 03/29/19 05:00 White Blood Count 8.8 x10^3/uL (4.0-11.0) Red Blood Count 4.40 x10^6/uL (3.50-5.40) Hemoglobin 12.1 g/dL (12.0-15.5) Hematocrit 36.4 % (36.0-47.0) Mean Corpuscular Volume 83 fL (79-100) Mean Corpuscular Hemoglobin 27 pg (25-35) Mean Corpuscular Hemoglobin Concent 33 g/dL (31-37) Red Cell Distribution Width 15.0 % (11.5-14.5) H Platelet Count 309 x10^3/uL (140-400) Neutrophils (%) (Auto) 44 % (31-73) Lymphocytes (%) (Auto) 46 % (24-48) Monocytes (%) (Auto) 8 % (0-9) Eosinophils (%) (Auto) 3 % (0-3) Basophils (%) (Auto) 0 % (0-3) Neutrophils # (Auto) 3.9 x10^3/uL (1.8-7.7) Lymphocytes # (Auto) 4.0 x10^3/uL (1.0-4.8) Monocytes # (Auto) 0.7 x10^3/uL (0.0-1.1) Eosinophils # (Auto) 0.2 x10^3/uL (0.0-0.7) Basophils # (Auto) 0.0 x10^3/uL (0.0-0.2) Sodium Level 139 mmol/L (136-145) Potassium Level 3.0 mmol/L (3.5-5.1) L Chloride Level 102 mmol/L (98-107) Carbon Dioxide Level 26 mmol/L (21-32) Anion Gap 11 (6-14) Blood Urea Nitrogen 25 mg/dL (7-20) H Creatinine 1.1 mg/dL (0.6-1.0) H Estimated GFR (Cockcroft-Gault) 48.8 BUN/Creatinine Ratio 23 (6-20) H Glucose Level 129 mg/dL (70-99) H Calcium Level 9.3 mg/dL (8.5-10.1) Total Bilirubin 0.3 mg/dL (0.2-1.0) Aspartate Amino Transferase (AST) 20 U/L (15-37) Alanine Aminotransferase (ALT) 19 U/L (14-59) Alkaline Phosphatase 88 U/L (46-116) Total Protein 7.8 g/dL (6.4-8.2) Albumin 3.7 g/dL (3.4-5.0) Albumin/Globulin Ratio 0.9 (1.0-1.7) L Laboratory Tests 03/28/19 15:40 10/17/19 05:00 Laboratory Tests 03/28/19 15:40 03/29/19 05:00 ASSESSMENT/PLAN ASSESSMENT/PLAN 1. Traumatic mechanical fall with acute left ribcage fracture: Slipped 2. Chest pain: present prior to above. EKG suspicious of very recent inferior DC, UA features. Trops nml. 3. CAD: LAD stent 2010, last stress test 01/2018 neg for ischemia 4. 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 5. Hx of sarcoidosis 6. HTN: controlled 7. HLP and statin intolerance: noted with past rash with multiple statins. 8. Obesity 9. Hypothyroidism 10. TERRY: improved 11. UTI: per PCP Recommendations 1. EKG from PCP yesterday noted same as current. 07/2018 EKG noted no significant changes till this current EKG. [facility] records reviewed. Plan for [facility] tomorrow. Risks and benefits discussed and agreeable to proceed. 2. ASA and continue BP regimen. Replace K 3. TSH, lipids, lytes. 4. TTE and will obtain noncontrast head CT with noted left temporal tenderness in relation to her fall. 5. Consider [id number] as an outpt. 6. Will hold HARRY Williamson MD 03/29/192026: CARDIAC CONSULT ASSESSMENT/PLAN ASSESSMENT/PLAN Patient seen and examined. Agree with [employer] ATTENDANT's assessment and plan. CP preceding mechanical fall has features c/w unstable angina Agree with cardiac cath for definitive evaluation feng since there are new EKG changes 2D echo showed normal LVF We will consider repatha for HLP as outpatient Thank you for your consultation CINDI SELBY APRN Mar 29, 2019 10:35 HARRY PORTER MD Mar 29, 2019 20:27
[2019-03-29 10:45] LABS: CHOLESTEROL/HDL RATIO 5.6
[2019-03-29 11:00] VITALS: BP 140/91
[2019-03-29] MEDS ORDERED: POTASSIUM CHLORIDE 20 MEQ TABLET.ER. PO ONE ×2 (11:00→11:30)
--- NOTE | 2019-03-29 11:02 | PDOC2 ---
CONSULT Date of Consult Date of Consult DATE: 03/29/19 TIME: 10:48 Reason for Consult Reason for Consult: TERRY Identification/Chief Complaint Chief Complaint Lt Rib pain(has a fracture) Source Source: Chart review, Patient History of Present Illness Reason for Visit: Patient is a 73 year old female who presents by EMS with complaining of chest pain , it was sudden onset of nonexertional substernal chest pain that started about 2 hours prior to arrival as a sharp and constant pain with radiation to her back and associated with nausea, shortness of breath, dizziness and rated her pain 10 over 10. Patient states she took nitroglycerin x 3 without change of pain. Patient state EMS gave her 50 g of nasal fentanyl with improvement of her pain to 6/10. Patient was seen by her primary care physician regarding chest wall injury and had x-ray and EKG and was told that she doesn't have rib fracture. Currently states feels better, No complaints. No SOB. Denies any urinary complaints . No N/V/D States she has a Hx of chronic UTI and has symptoms but currently no symptoms Takes Ibuprofen 400 mg QD for Headache along with Tylenol Past Medical History Cardiovascular: CAD, HTN, Hyperlipidemia (intolerant to statins) Pulmonary: Pulmonary embolus (2010), Other (TB in ; sarcoidosis; pneumot horax) CENTRAL NERVOUS SYSTEM: CVA, Migraine GI: No pertinent hx Heme/Onc: Other (multiple past DVTs) Hepatobiliary: No pertinent hx, Hep A/B/C (B) Psych: Depression Musculoskeletal: low back pain, Osteoarthritis, Other (failed back syndrome) Rheumatologic: Fibromyalgia Infectious disease: No pertinent hx ENT: No pertinent hx Renal/: No pertinent hx Endocrine: Hypothyroidism Dermatology: No pertinent hx Past Surgical History Past Surgical History: Cataract Removal, Other (PCI/stent 2008; Lumbar fusion; lung biopsy) Family History Family History: Coronary Artery Disease (mother in her 40s) Social History No ALCOHOL: none Drugs: None Lives: with Family Current Problem List Problem List Problems Medical Problems: (1) Acute chest pain Status: Acute (2) Fall at home Status: Acute (3) Renal insufficiency Status: Acute (4) Ribs, multiple fractures Status: Acute Current Medications Current Medications Current Medications Ondansetron HCl (Zofran) 4 mg 1X ONCE IV Last administered on 03/28/19at 16:23; Start 03/28/19 at 15:45; Stop 03/28/19 at 15:46; Status DC Fentanyl Citrate (Fentanyl 2ml Vial) 50 mcg 1X ONCE IVP Last administered on 03/28/19at 16:52; Start 03/28/19 at 17:00; Stop 03/28/19 at 17:01; Status DC Fentanyl Citrate (Fentanyl 2ml Vial) 100 mcg STK-MED ONCE .ROUTE ; Start 03/28/19 at 16:49; Stop 03/28/19 at 16:49; Status DC Fentanyl Citrate (Fentanyl 2ml Vial) 50 mcg PRN Q2HR PRN IVP PAIN Last administered on 03/29/19at 04:00; Start 03/28/19 at 17:45 Ondansetron HCl (Zofran) 4 mg PRN Q4HRS PRN IVP NAUSEA/VOMITING; Start 03/28/19 at 17:45; Stop 03/29/19 at 09:08; Status DC Sodium Chloride (Normal Saline Flush) 3 ml QSHIFT PRN IV AFTER MEDS AND BLOOD DRAWS; Start 03/28/19 at 18:30 Ondansetron HCl (Zofran) 4 mg PRN Q4HRS PRN IV NAUSEA/VOMITING; Start 03/28/19 at 18:30 Zolpidem Tartrate (Ambien) 5 mg PRN QHS PRN PO INSOMNIA; Start 03/28/19 at 18:30 Acetaminophen (Tylenol) 650 mg PRN Q4HRS PRN PO TEMP OVER 100.4F OR MILD PAIN; Start 03/28/19 at 18:30; Stop 03/28/19 at 19:27; Status DC Al Hydroxide/Mg Hydroxide (Mylanta Plus Xs) 30 ml PRN DAILY PRN PO HEARTBURN / GAS; Start 03/28/19 at 18:30 Clonidine HCl (Catapres) 0.1 mg PRN Q6HRS PRN PO SBP>160 OR DBP>90; Start 03/28/19 at 18:30 Docusate Sodium (Colace) 100 mg PRN BID PRN PO CONSTIPATION; Start 03/28/19 at 18:30 Albuterol/ Ipratropium (Duoneb) 3 ml Q4HRS NEB Last administered on 03/29/19at 04:00; Start 03/28/19 at 20:00; Stop 03/29/19 at 07:40; Status DC Lorazepam (Ativan) 0.5 mg PRN Q4HRS PRN PO ANXIETY / AGITATION; Start 03/28/19 at 18:30 Enoxaparin Sodium (Lovenox 40mg Syringe) 40 mg DAILY SQ ; Start 03/29/19 at 09:00; Stop 03/28/19 at 19:40; Status DC Acetaminophen (Tylenol) 325 mg PRN Q6HRS PRN PO MILD PAIN 1-3; Start 03/28/19 at 19:15 Amlodipine Besylate (Norvasc) 10 mg DAILY PO Last administered on 03/29/19at 09:41; Start 03/29/19 at 09:00 Aspirin (Children'S Aspirin) 81 mg DAILY PO Last administered on 03/29/19at 09:41; Start 03/29/19 at 09:00 Acetaminophen/ Hydrocodone Bitart (Lortab 5/325) 1 tab PRN Q6HRS PRN PO MODERATE - SEVERE PAIN; Start 03/28/19 at 19:15 Isosorbide Mononitrate (Imdur) 30 mg DAILY PO Last administered on 03/29/19at 09:41; Start 03/29/19 at 09:00 Levothyroxine Sodium (Synthroid) 100 mcg DAILY06 PO Last administered on 03/29/19at 06:24; Start 03/29/19 at 06:00 Loperamide HCl (Imodium) 2 mg PRN TID PRN PO DIARRHEA; Start 03/28/19 at 19:15 Metoprolol Succinate (Toprol Xl) 100 mg DAILY PO Last administered on 03/29at 09:41; Start 03/29/19 at 09:00 Nitroglycerin (Nitrostat) 0.4 mg PRN Q5MIN PRN SL CHEST PAIN; Start 03/28/19 at 19:15 Trazodone HCl (Desyrel) 100 mg HS PO Last administered on 03/28/19at 21:32; Start 03/28/19 at 21:00 Citalopram Hydrobromide (CeleXA) 40 mg DAILY PO Last administered on 03/29/19at 09:42; Start 03/29/19 at 09:00 Losartan Potassium (Cozaar) 100 mg DAILY PO Last administered on 03/29/19at 09:42; Start 03/29/19 at 09:00 Rivaroxaban (Xarelto) 20 mg DAILY@1700 PO ; Start 03/29/19 at 17:00; Stop 03/29/19 at 10:37; Status DC Desipramine HCl (Norpramin) 10 mg BID PO ; Start 03/28/19 at 21:00; Stop 03/28/19 at 20:30; Status DC Desipramine HCl (Norpramin) 10 mg BID PO ; Start 03/29/19 at 09:00; Status UNV Influenza Virus Vaccine Quadrival (Afluria Quad 2019-20 (3yr Up) Syringe) 0.5 ml ONCE ONCE VAX IM Last administered on 03/29/19at 09:44; Start 03/29/19 at 09:00; Stop 03/29/19 at 09:05; Status DC Info (FLU VACCINE SCREEN per RX) 1 each PRN 1X PRN MC SEE COMMENTS; Start 03/29/19 at 04:45; Status Cancel Albuterol Sulfate (Ventolin Neb Soln) 2.5 mg PRN Q4HRS PRN NEB SHORTNESS OF BREATH; Start 03/29/19 at 08:15 Potassium Chloride (Klor-Con) 40 meq 1X ONCE PO ; Start 03/29/19 at 11:00; Stop 03/29/19 at 11:01 Rivaroxaban (Xarelto) 20 mg DAILY@1700 PO ; Start 03/29/19 at 17:00 Active Scripts Active Reported Desipramine Hcl 10 Mg Tablet 10 Mg PO BID Loperamide (Loperamide Hcl) 2 Mg Capsule 2 Mg PO PRN PRN Tylenol (Acetaminophen) 325 Mg Tablet 325 Mg PO PRN PRN Aspirin 81 Mg Tab.chew 1 Tab PO DAILY Nitrostat (Nitroglycerin) 0.4 Mg Tab.subl 0.4 Mg SL PRN Q5MIN PRN Melatonin 3 Mg Tablet 1 Tab PO QHS Losartan Potassium 100 Mg Tablet 100 Mg PO DAILY Escitalopram Oxalate 20 Mg Tablet 20 Mg PO DAILY Hydrocodone-Apap 5-325 (Hydrocodone Bit/Acetaminophen) 1 Tab Tablet 1 Tab PO PRN Q6HRS PRN Trazodone Hcl 100 Mg Tablet 100 Mg PO HS Metoprolol Succinate ( Xl ) (Metoprolol Succinate) 100 Mg Tab.er.24h 100 Mg PO DAILY Xarelto (Rivaroxaban) 20 Mg Tablet 20 Mg PO DAILY Isosorbide Mononitrate Er (Isosorbide Mononitrate) 30 Mg Tab.er.24h 30 Mg PO DAILY Levothyroxine Sodium 100 Mcg Tablet 100 Mcg PO DAILYAC Amlodipine Besylate 10 Mg Tablet 10 Mg PO DAILY Allergies Allergies: Coded Allergies: Penicillins (Verified Allergy, Intermediate, 03/28/19) Tiaxspg-Gkg-Olg Reductase Inhibitor (Verified Allergy, Intermediate, 03/28/19) adhesive tape (Verified Allergy, Intermediate, 03/28/19) ampicillin (Verified Allergy, Intermediate, 03/28/19) aripiprazole (Verified Allergy, Intermediate, 03/28/19) atorvastatin (Verified Allergy, Intermediate, 03/28/19) bupropion (Verified Allergy, Intermediate, 03/28/19) cephalexin (Verified Allergy, Intermediate, 03/28/19) divalproex sodium (Verified Allergy, Intermediate, 03/28/19) gatifloxacin (Verified Allergy, Intermediate, 03/28/19) latex (Verified Allergy, Intermediate, 03/28/19) oxaprozin (Verified Allergy, Intermediate, 03/28/19) rofecoxib (Verified Allergy, Intermediate, 03/28/19) tetracycline (Verified Allergy, Intermediate, 03/28/19) Uncoded Allergies: bandaids (Allergy, Unknown, 03/28/19) myacins (Allergy, Unknown, 03/28/19) ROS Review of System Per HPI Physical Exam Physical Exam General: NAD HEENT: OM moist Neck supple Lungs: Clear to auscultation, Non labored Heart RRR Abdomen: Soft, No tenderness Extremities: No cyanosis, No edema Skin: No Rash , No significant lesion Neuro: grossly normal Psych/Mental Status: Mental status NL, Mood NL NO Palmer, No CVA or SP tenderness Vital Signs Vital Signs Date Time Temp Pulse Resp B/P (MAP) Pulse Ox O2 Delivery O2 Flow Rate FiO2 03/29/19 09:42 69 135/69 03/29/19 08:00 Room Air 03/29/19 07:00 97.9 18 92 97.9 Assessment & Plan [id number] /Vasomotor / Use of NSAID renal function improving , Cr peaked at 1.6 E-Lytes and acid base stable, Supportive care , Monitor Hypokalemia - Replace Traumatic mechanical fall with acute left ribcage fracture Chest pain: EKG suspicious of recent inferior CO per cardiology CAD: stent placed in 2008 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 Hx of sarcoidosis HTN: controlled On losartan UTI: per PCP Labs Labs Laboratory Tests Test 03/28/19 15:40 03/28/19 20:05 03/28/19 21:40 03/28/19 23:20 White Blood Count 12.0 x10^3/uL (4.0-11.0) Red Blood Count 4.62 x10^6/uL (3.50-5.40) Hemoglobin 12.4 g/dL (12.0-15.5) Hematocrit 38.0 % (36.0-47.0) Mean Corpuscular Volume 82 fL (79-100) Mean Corpuscular Hemoglobin 27 pg (25-35) Mean Corpuscular Hemoglobin Concent 33 g/dL (31-37) Red Cell Distribution Width 14.9 % (11.5-14.5) Platelet Count 355 x10^3/uL (140-400) Neutrophils (%) (Auto) 71 % (31-73) Lymphocytes (%) (Auto) 18 % (24-48) Monocytes (%) (Auto) 8 % (0-9) Eosinophils (%) (Auto) 2 % (0-3) Basophils (%) (Auto) 1 % (0-3) Neutrophils # (Auto) 8.6 x10^3/uL (1.8-7.7) Lymphocytes # (Auto) 2.2 x10^3/uL (1.0-4.8) Monocytes # (Auto) 1.0 x10^3/uL (0.0-1.1) Eosinophils # (Auto) 0.2 x10^3/uL (0.0-0.7) Basophils # (Auto) 0.1 x10^3/uL (0.0-0.2) D-Dimer (Charity) < 0.27 ug/mlFEU Sodium Level 138 mmol/L (136-145) Potassium Level 3.6 mmol/L (3.5-5.1) Chloride Level 101 mmol/L (98-107) Carbon Dioxide Level 27 mmol/L (21-32) Anion Gap 10 (6-14) Blood Urea Nitrogen 31 mg/dL (7-20) Creatinine 1.6 mg/dL (0.6-1.0) Estimated GFR (Cockcroft-Gault) 31.7 BUN/Creatinine Ratio 19 (6-20) Glucose Level 130 mg/dL (70-99) Calcium Level 9.8 mg/dL (8.5-10.1) Magnesium Level 1.9 mg/dL (1.8-2.4) Total Bilirubin 0.2 mg/dL (0.2-1.0) Aspartate Amino Transf (AST/SGOT) 22 U/L (15-37) Alanine Aminotransferase (ALT/SGPT) 23 U/L (14-59) Alkaline Phosphatase 95 U/L (46-116) Creatine Kinase 151 U/L (26-192) Troponin I Quantitative < 0.017 ng/mL (0.000-0.055) < 0.017 ng/mL (0.000-0.055) < 0.017 ng/mL (0.000-0.055) DT-Xzw-E-Type Natriuretic Peptide 67 pg/mL (0-124) Total Protein 8.3 g/dL (6.4-8.2) Albumin 4.1 g/dL (3.4-5.0) Albumin/Globulin Ratio 1.0 (1.0-1.7) Lipase 94 U/L (73-393) Urine Collection Type Unknown Urine Color Yellow Urine Clarity Cloudy Urine pH 5.0 Urine Specific [place] 1.025 Urine Protein 30 mg/dL (NEG-TRACE) Urine Glucose (UA) Negative mg/dL (NEG) Urine Ketones (Stick) Negative mg/dL (NEG) Urine Blood Moderate (NEG) Urine Nitrite Positive (NEG) Urine Bilirubin Negative (NEG) Urine Urobilinogen Dipstick 0.2 mg/dL (0.2 mg/dL) Urine Leukocyte Esterase Large (NEG) Urine RBC 1-2 /HPF (0-2) Urine WBC Tntc /HPF (0-4) Urine Squamous Epithelial Cells Many /LPF Urine Bacteria Many /HPF (0-FEW) Urine Hyaline Casts Occasional /HPF Test 03/29/19 05:00 White Blood Count 8.8 x10^3/uL (4.0-11.0) Red Blood Count 4.40 x10^6/uL (3.50-5.40) Hemoglobin 12.1 g/dL (12.0-15.5) Hematocrit 36.4 % (36.0-47.0) Mean Corpuscular Volume 83 fL (79-100) Mean Corpuscular Hemoglobin 27 pg (25-35) Mean Corpuscular Hemoglobin Concent 33 g/dL (31-37) Red Cell Distribution Width 15.0 % (11.5-14.5) Platelet Count 309 x10^3/uL (140-400) Neutrophils (%) (Auto) 44 % (31-73) Lymphocytes (%) (Auto) 46 % (24-48) Monocytes (%) (Auto) 8 % (0-9) Eosinophils (%) (Auto) 3 % (0-3) Basophils (%) (Auto) 0 % (0-3) Neutrophils # (Auto) 3.9 x10^3/uL (1.8-7.7) Lymphocytes # (Auto) 4.0 x10^3/uL (1.0-4.8) Monocytes # (Auto) 0.7 x10^3/uL (0.0-1.1) Eosinophils # (Auto) 0.2 x10^3/uL (0.0-0.7) Basophils # (Auto) 0.0 x10^3/uL (0.0-0.2) Sodium Level 139 mmol/L (136-145) Potassium Level 3.0 mmol/L (3.5-5.1) Chloride Level 102 mmol/L (98-107) Carbon Dioxide Level 26 mmol/L (21-32) Anion Gap 11 (6-14) Blood Urea Nitrogen 25 mg/dL (7-20) Creatinine 1.1 mg/dL (0.6-1.0) Estimated GFR (Cockcroft-Gault) 48.8 BUN/Creatinine Ratio 23 (6-20) Glucose Level 129 mg/dL (70-99) Calcium Level 9.3 mg/dL (8.5-10.1) Total Bilirubin 0.3 mg/dL (0.2-1.0) Aspartate Amino Transf (AST/SGOT) 20 U/L (15-37) Alanine Aminotransferase (ALT/SGPT) 19 U/L (14-59) Alkaline Phosphatase 88 U/L (46-116) Total Protein 7.8 g/dL (6.4-8.2) Albumin 3.7 g/dL (3.4-5.0) Albumin/Globulin Ratio 0.9 (1.0-1.7) Triglycerides Level 199 mg/dL (0-150) Cholesterol Level 192 mg/dL (0-200) LDL Cholesterol, Calculated 118 mg/dL (0-100) VLDL Cholesterol, Calculated 40 mg/dL (0-40) Non-HDL Cholesterol Calculated 158 mg/dL (0-129) HDL Cholesterol 34 mg/dL (40-60) Cholesterol/HDL Ratio 5.6 Laboratory Tests Test 03/28/19 15:40 03/28/19 20:05 03/28/19 21:40 03/28/19 23:20 White Blood Count 12.0 x10^3/uL (4.0-11.0) Red Blood Count 4.62 x10^6/uL (3.50-5.40) Hemoglobin 12.4 g/dL (12.0-15.5) Hematocrit 38.0 % (36.0-47.0) Mean Corpuscular Volume 82 fL (79-100) Mean Corpuscular Hemoglobin 27 pg (25-35) Mean Corpuscular Hemoglobin Concent 33 g/dL (31-37) Red Cell Distribution Width 14.9 % (11.5-14.5) Platelet Count 355 x10^3/uL (140-400) Neutrophils (%) (Auto) 71 % (31-73) Lymphocytes (%) (Auto) 18 % (24-48) Monocytes (%) (Auto) 8 % (0-9) Eosinophils (%) (Auto) 2 % (0-3) Basophils (%) (Auto) 1 % (0-3) Neutrophils # (Auto) 8.6 x10^3/uL (1.8-7.7) Lymphocytes # (Auto) 2.2 x10^3/uL (1.0-4.8) Monocytes # (Auto) 1.0 x10^3/uL (0.0-1.1) Eosinophils # (Auto) 0.2 x10^3/uL (0.0-0.7) Basophils # (Auto) 0.1 x10^3/uL (0.0-0.2) D-Dimer (Charity) < 0.27 ug/mlFEU Sodium Level 138 mmol/L (136-145) Potassium Level 3.6 mmol/L (3.5-5.1) Chloride Level 101 mmol/L (98-107) Carbon Dioxide Level 27 mmol/L (21-32) Anion Gap 10 (6-14) Blood Urea Nitrogen 31 mg/dL (7-20) Creatinine 1.6 mg/dL (0.6-1.0) Estimated GFR (Cockcroft-Gault) 31.7 BUN/Creatinine Ratio 19 (6-20) Glucose Level 130 mg/dL (70-99) Calcium Level 9.8 mg/dL (8.5-10.1) Magnesium Level 1.9 mg/dL (1.8-2.4) Total Bilirubin 0.2 mg/dL (0.2-1.0) Aspartate Amino Transf (AST/SGOT) 22 U/L (15-37) Alanine Aminotransferase (ALT/SGPT) 23 U/L (14-59) Alkaline Phosphatase 95 U/L (46-116) Creatine Kinase 151 U/L (26-192) Troponin I Quantitative < 0.017 ng/mL (0.000-0.055) < 0.017 ng/mL (0.000-0.055) < 0.017 ng/mL (0.000-0.055) AP-Hwx-K-Type Natriuretic Peptide 67 pg/mL (0-124) Total Protein 8.3 g/dL (6.4-8.2) Albumin 4.1 g/dL (3.4-5.0) Albumin/Globulin Ratio 1.0 (1.0-1.7) Lipase 94 U/L (73-393) Urine Collection Type Unknown Urine Color Yellow Urine Clarity Cloudy Urine pH 5.0 Urine Specific [place] 1.025 Urine Protein 30 mg/dL (NEG-TRACE) Urine Glucose (UA) Negative mg/dL (NEG) Urine Ketones (Stick) Negative mg/dL (NEG) Urine Blood Moderate (NEG) Urine Nitrite Positive (NEG) Urine Bilirubin Negative (NEG) Urine Urobilinogen Dipstick 0.2 mg/dL (0.2 mg/dL) Urine Leukocyte Esterase Large (NEG) Urine RBC 1-2 /HPF (0-2) Urine WBC Tntc /HPF (0-4) Urine Squamous Epithelial Cells Many /LPF Urine Bacteria Many /HPF (0-FEW) Urine Hyaline Casts Occasional /HPF Test 03/29/19 05:00 White Blood Count 8.8 x10^3/uL (4.0-11.0) Red Blood Count 4.40 x10^6/uL (3.50-5.40) Hemoglobin 12.1 g/dL (12.0-15.5) Hematocrit 36.4 % (36.0-47.0) Mean Corpuscular Volume 83 fL (79-100) Mean Corpuscular Hemoglobin 27 pg (25-35) Mean Corpuscular Hemoglobin Concent 33 g/dL (31-37) Red Cell Distribution Width 15.0 % (11.5-14.5) Platelet Count 309 x10^3/uL (140-400) Neutrophils (%) (Auto) 44 % (31-73) Lymphocytes (%) (Auto) 46 % (24-48) Monocytes (%) (Auto) 8 % (0-9) Eosinophils (%) (Auto) 3 % (0-3) Basophils (%) (Auto) 0 % (0-3) Neutrophils # (Auto) 3.9 x10^3/uL (1.8-7.7) Lymphocytes # (Auto) 4.0 x10^3/uL (1.0-4.8) Monocytes # (Auto) 0.7 x10^3/uL (0.0-1.1) Eosinophils # (Auto) 0.2 x10^3/uL (0.0-0.7) Basophils # (Auto) 0.0 x10^3/uL (0.0-0.2) Sodium Level 139 mmol/L (136-145) Potassium Level 3.0 mmol/L (3.5-5.1) Chloride Level 102 mmol/L (98-107) Carbon Dioxide Level 26 mmol/L (21-32) Anion Gap 11 (6-14) Blood Urea Nitrogen 25 mg/dL (7-20) Creatinine 1.1 mg/dL (0.6-1.0) Estimated GFR (Cockcroft-Gault) 48.8 BUN/Creatinine Ratio 23 (6-20) Glucose Level 129 mg/dL (70-99) Calcium Level 9.3 mg/dL (8.5-10.1) Total Bilirubin 0.3 mg/dL (0.2-1.0) Aspartate Amino Transf (AST/SGOT) 20 U/L (15-37) Alanine Aminotransferase (ALT/SGPT) 19 U/L (14-59) Alkaline Phosphatase 88 U/L (46-116) Total Protein 7.8 g/dL (6.4-8.2) Albumin 3.7 g/dL (3.4-5.0) Albumin/Globulin Ratio 0.9 (1.0-1.7) Triglycerides Level 199 mg/dL (0-150) Cholesterol Level 192 mg/dL (0-200) LDL Cholesterol, Calculated 118 mg/dL (0-100) VLDL Cholesterol, Calculated 40 mg/dL (0-40) Non-HDL Cholesterol Calculated 158 mg/dL (0-129) HDL Cholesterol 34 mg/dL (40-60) Cholesterol/HDL Ratio 5.6 Review All relevant outside records, renal labs, imaging studies, telemetry/EKG's were reviewed. Images Images Chest x-ray demonstrates no acute lung infiltrate or pleural effusion or pneumothorax. The heart size and pulmonary vasculature and mediastinum and both amanda are unremarkable. IMPRESSION: Acute left rib cage fractures. MAKAYLA RUIZ MD Mar 29, 2019 11:02
--- NOTE | 2019-03-29 11:49 | CARD ---
MR#: [id number] Date of Study: 03/29/2019 Ordering Physician: ALEJANDRO RODRIGUEZ, Referring Physician: ALEJANDRO RODRIGUEZ Tech: Jazzy Ordonez MIKE APPROVED REPORT EXAM: Two-dimensional and M-mode echocardiogram with Doppler and color Doppler. Other Information Quality : AverageHR: 77bpm Rhythm : NSR INDICATION Chest Pain 2D DIMENSIONS RVDd3.3 (2.9-3.5cm)Left Atrium(2D)3.1 (1.6-4.0cm) IVSd1.6 (0.7-1.1cm)Aortic Root(2D)3.0 (2.0-3.7cm) LVDd4.5 (3.9-5.9cm)LVOT Diameter2.1 (1.8-2.4cm) PWd1.0 (0.7-1.1cm)LVDs3.1 (2.5-4.0cm) FS (%) 29.7 %SV51.6 ml LVEF(%)56.9 (>50%) M-Mode DIMENSIONS Left Atrium(MM)3.26 (2.5-4.0cm)Aortic Root3.02 (2.2-3.7cm) Aortic Valve AoV Peak Trae.190.5cm/sAoV VTI36.1cm AO Peak GR.14.5mmHgLVOT Peak Trae.110.9cm/s AO Mean GR.8mmHgAVA (VMAX)2.03cm2 SLIM (VTI)2.10cm2 Mitral Valve MV E Chcplsnj67.5cm/sMV DECEL [id number] MV A Bbbnxcjh77.9cm/sE/A Ratio0.7 Pulmonary Valve PV Peak Ymozfocl167.7cm/s Tricuspid Valve TR P. [id number]/sRAP [id number] TR Peak Gr.[id number] LEFT VENTRICLE The left ventricle is normal size. Proximal septal thickening is noted. The left ventricular systolic function is normal and the ejection fraction is within normal range. The Ejection Fraction is 55-60% . There is normal LV segmental wall motion. Transmitral Doppler flow pattern is Grade I-abnormal rela xation pattern. RIGHT VENTRICLE The right ventricle is normal size. There is normal right ventricular wall thickness. The right ventr icular systolic function is normal. ATRIA The left atrium size is normal. The right atrium size is normal. The interatrial septum is intact wit h no evidence for an atrial septal defect or patent foramen ovale as noted on 2-D or Doppler imaging. AORTIC VALVE The aortic valve is trileaflet. The aortic valve is moderate to severely calcified. Doppler and Color Flow revealed no significant aortic regurgitation. There is no significant aortic valvular stenosis. There is no aortic valvular vegetation. MITRAL VALVE The mitral valve is normal in structure and function. There is no evidence of mitral valve prolapse. There is no mitral valve stenosis. Doppler and Color Flow revealed no mitral valve regurgitation note d. TRICUSPID VALVE The tricuspid valve is normal in structure and function. Doppler and Color Flow revealed trace tricus pid regurgitation. The PA pressure was estimated at 31 mmHg. There is no tricuspid valve prolapse or vegetation. There is no tricuspid valve stenosis. PULMONIC VALVE The pulmonic valve is not well visualized. GREAT VESSELS The aortic root is normal in size. The ascending aorta is normal in size. The IVC is normal in size a nd collapses >50% with inspiration. PERICARDIAL EFFUSION There is no evidence of significant pericardial effusion. Critical Notification Critical Value: No <Conclusion> The left ventricular systolic function is normal and the ejection fraction is within normal range. Th e Ejection Fraction is 55-60%. There is normal LV segmental wall motion. Signed by : Nathanael Pettit, Electronically Approved : 03/29/2019 11:48:51
[2019-03-29] MEDS: IV NORMAL SALINE 1000ML BAG 1,000 ML IV SCH (11:59)
[2019-03-29] MEDS: ONDANSETRON PF 4 MG/2 ML VIAL. IV PRN ×2 (12:01→16:51)
[2019-03-29] MEDS: DESIPRAMINE HCL 10 MG TABLET PO SCH ×2 (12:43→21:52)
--- NOTE | 2019-03-29 12:53 | PDOC ---
[employer] PROGRESS NOTE Chief Complaint Chief Complaint CHEST PAIN HX CAD Recent fall in shower 2 days BOOK JOGGER Acute left rib cage fractures. SEC TO FALL ckd stage 3 remote PE ON XARELTO UTI History of Present Illness History of Present Illness 03/29/2019 Pt was seen and examined. She reports not feeling well today but had no specific complaints. States she has 3 fractured ribs on her left and will be having an echo today. She also reports she will be having an MPI tomorrow. EF was 55-60% (03/29/2019) Vitals/I&O Vitals/I&O: Vital Signs Date Time Temp Pulse Resp B/P (MAP) Pulse Ox O2 Delivery O2 Flow Rate FiO2 03/29/19 11:00 98.0 87 18 140/91 (107) 97 Room Air 98.0 I & O 03/28/19 03/28/19 03/29/19 15:00 23:00 07:00 Output Total 150 ml Balance -150 ml Physical Exam General: Alert, Oriented X3, Cooperative, No acute distress Heart: Regular rate (SR), Normal S1, Normal S2, Other (3/6 systolic murmur to FELIZ border) Lungs: Clear Abdomen: Soft, No tenderness Extremities: No cyanosis, No edema Skin: No breakdown, No significant lesion Labs Labs: Laboratory Tests Test 03/28/19 15:40 03/28/19 20:05 03/28/19 21:40 03/28/19 23:20 White Blood Count 12.0 x10^3/uL (4.0-11.0) Red Blood Count 4.62 x10^6/uL (3.50-5.40) Hemoglobin 12.4 g/dL (12.0-15.5) Hematocrit 38.0 % (36.0-47.0) Mean Corpuscular Volume 82 fL (79-100) Mean Corpuscular Hemoglobin 27 pg (25-35) Mean Corpuscular Hemoglobin Concent 33 g/dL (31-37) Red Cell Distribution Width 14.9 % (11.5-14.5) Platelet Count 355 x10^3/uL (140-400) Neutrophils (%) (Auto) 71 % (31-73) Lymphocytes (%) (Auto) 18 % (24-48) Monocytes (%) (Auto) 8 % (0-9) Eosinophils (%) (Auto) 2 % (0-3) Basophils (%) (Auto) 1 % (0-3) Neutrophils # (Auto) 8.6 x10^3/uL (1.8-7.7) Lymphocytes # (Auto) 2.2 x10^3/uL (1.0-4.8) Monocytes # (Auto) 1.0 x10^3/uL (0.0-1.1) Eosinophils # (Auto) 0.2 x10^3/uL (0.0-0.7) Basophils # (Auto) 0.1 x10^3/uL (0.0-0.2) D-Dimer (Charity) < 0.27 ug/mlFEU Sodium Level 138 mmol/L (136-145) Potassium Level 3.6 mmol/L (3.5-5.1) Chloride Level 101 mmol/L (98-107) Carbon Dioxide Level 27 mmol/L (21-32) Anion Gap 10 (6-14) Blood Urea Nitrogen 31 mg/dL (7-20) Creatinine 1.6 mg/dL (0.6-1.0) Estimated GFR (Cockcroft-Gault) 31.7 BUN/Creatinine Ratio 19 (6-20) Glucose Level 130 mg/dL (70-99) Calcium Level 9.8 mg/dL (8.5-10.1) Magnesium Level 1.9 mg/dL (1.8-2.4) Total Bilirubin 0.2 mg/dL (0.2-1.0) Aspartate Amino Transf (AST/SGOT) 22 U/L (15-37) Alanine Aminotransferase (ALT/SGPT) 23 U/L (14-59) Alkaline Phosphatase 95 U/L (46-116) Creatine Kinase 151 U/L (26-192) Troponin I Quantitative < 0.017 ng/mL (0.000-0.055) < 0.017 ng/mL (0.000-0.055) < 0.017 ng/mL (0.000-0.055) JE-Kdx-G-Type Natriuretic Peptide 67 pg/mL (0-124) Total Protein 8.3 g/dL (6.4-8.2) Albumin 4.1 g/dL (3.4-5.0) Albumin/Globulin Ratio 1.0 (1.0-1.7) Lipase 94 U/L (73-393) Urine Collection Type Unknown Urine Color Yellow Urine Clarity Cloudy Urine pH 5.0 Urine Specific Henning 1.025 Urine Protein 30 mg/dL (NEG-TRACE) Urine Glucose (UA) Negative mg/dL (NEG) Urine Ketones (Stick) Negative mg/dL (NEG) Urine Blood Moderate (NEG) Urine Nitrite Positive (NEG) Urine Bilirubin Negative (NEG) Urine Urobilinogen Dipstick 0.2 mg/dL (0.2 mg/dL) Urine Leukocyte Esterase Large (NEG) Urine RBC 1-2 /HPF (0-2) Urine WBC Tntc /HPF (0-4) Urine Squamous Epithelial Cells Many /LPF Urine Bacteria Many /HPF (0-FEW) Urine Hyaline Casts Occasional /HPF Test 03/29/19 05:00 White Blood Count 8.8 x10^3/uL (4.0-11.0) Red Blood Count 4.40 x10^6/uL (3.50-5.40) Hemoglobin 12.1 g/dL (12.0-15.5) Hematocrit 36.4 % (36.0-47.0) Mean Corpuscular Volume 83 fL (79-100) Mean Corpuscular Hemoglobin 27 pg (25-35) Mean Corpuscular Hemoglobin Concent 33 g/dL (31-37) Red Cell Distribution Width 15.0 % (11.5-14.5) Platelet Count 309 x10^3/uL (140-400) Neutrophils (%) (Auto) 44 % (31-73) Lymphocytes (%) (Auto) 46 % (24-48) Monocytes (%) (Auto) 8 % (0-9) Eosinophils (%) (Auto) 3 % (0-3) Basophils (%) (Auto) 0 % (0-3) Neutrophils # (Auto) 3.9 x10^3/uL (1.8-7.7) Lymphocytes # (Auto) 4.0 x10^3/uL (1.0-4.8) Monocytes # (Auto) 0.7 x10^3/uL (0.0-1.1) Eosinophils # (Auto) 0.2 x10^3/uL (0.0-0.7) Basophils # (Auto) 0.0 x10^3/uL (0.0-0.2) Sodium Level 139 mmol/L (136-145) Potassium Level 3.0 mmol/L (3.5-5.1) Chloride Level 102 mmol/L (98-107) Carbon Dioxide Level 26 mmol/L (21-32) Anion Gap 11 (6-14) Blood Urea Nitrogen 25 mg/dL (7-20) Creatinine 1.1 mg/dL (0.6-1.0) Estimated GFR (Cockcroft-Gault) 48.8 BUN/Creatinine Ratio 23 (6-20) Glucose Level 129 mg/dL (70-99) Calcium Level 9.3 mg/dL (8.5-10.1) Total Bilirubin 0.3 mg/dL (0.2-1.0) Aspartate Amino Transf (AST/SGOT) 20 U/L (15-37) Alanine Aminotransferase (ALT/SGPT) 19 U/L (14-59) Alkaline Phosphatase 88 U/L (46-116) Total Protein 7.8 g/dL (6.4-8.2) Albumin 3.7 g/dL (3.4-5.0) Albumin/Globulin Ratio 0.9 (1.0-1.7) Triglycerides Level 199 mg/dL (0-150) Cholesterol Level 192 mg/dL (0-200) LDL Cholesterol, Calculated 118 mg/dL (0-100) VLDL Cholesterol, Calculated 40 mg/dL (0-40) Non-HDL Cholesterol Calculated 158 mg/dL (0-129) HDL Cholesterol 34 mg/dL (40-60) Cholesterol/HDL Ratio 5.6 Review of Systems Review of Systems: Admits Chest pain Denies SOB Denies N/V/D Assessment and Plan Assessmemt and Plan Problems Medical Problems: (1) Acute chest pain Status: Acute (2) Fall at home Status: Acute (3) Renal insufficiency Status: Acute (4) Ribs, multiple fractures Status: Acute CHEST PAIN HX CAD Recent fall in shower 2 days BOOK JOGGER Acute left rib cage fractures. SEC TO FALL ckd stage 3 remote PE ON XARELTO UTI Plan: 1) Initiated IVF 2) Initiated IV levofloxacin 500mg per IV qd for 5 days 3) DVT prophylaxis 4) Cardiac monitoring 5) Full Code 6) PT/OT 7) Will await results of MPI study scheduled for tomorrow Comment Review of Relevant I have reviewed the following items baltazar (where applicable) has been applied. Medications: Current Medications Medications (Trade) Dose Ordered Sig/Lexii Route PRN Reason Start Time Stop Time Status Last Admin Dose Admin Ondansetron HCl (Zofran) 4 mg 1X ONCE IV 03/28/19 15:45 03/28/19 15:46 DC 03/28/19 16:23 Fentanyl Citrate (Fentanyl 2ml Vial) 50 mcg 1X ONCE IVP 03/28/19 17:00 03/28/19 17:01 DC 03/28/19 16:52 Fentanyl Citrate (Fentanyl 2ml Vial) 50 mcg PRN Q2HR PRN IVP PAIN 03/28/19 17:45 03/29/19 10:54 Ondansetron HCl (Zofran) 4 mg PRN Q4HRS PRN IV NAUSEA/VOMITING 03/28/19 18:30 03/29/19 12:01 Albuterol/ Ipratropium (Duoneb) 3 ml Q4HRS NEB 03/28/19 20:00 03/29/19 07:40 DC 03/29/19 04:00 Amlodipine Besylate (Norvasc) 10 mg DAILY PO 03/29/19 09:00 03/29/19 09:41 Aspirin (Children'S Aspirin) 81 mg DAILY PO 03/29/19 09:00 03/29/19 09:41 Isosorbide Mononitrate (Imdur) 30 mg DAILY PO 03/29/19 09:00 03/29/19 09:41 Levothyroxine Sodium (Synthroid) 100 mcg DAILY06 PO 03/29/19 06:00 03/29/19 06:24 Metoprolol Succinate (Toprol Xl) 100 mg DAILY PO 03/29/19 09:00 03/29/19 09:41 Trazodone HCl (Desyrel) 100 mg HS PO 03/28/19 21:00 03/28/19 21:32 Citalopram Hydrobromide (CeleXA) 40 mg DAILY PO 03/29/19 09:00 03/29/19 09:42 Losartan Potassium (Cozaar) 100 mg DAILY PO 03/29/19 09:00 03/29/19 09:42 Desipramine HCl (Norpramin) 10 mg BID PO 03/29/19 09:00 03/29/19 12:43 Influenza Virus Vaccine Quadrival (Afluria Quad 2018- (3yr Up) Syringe) 0.5 ml ONCE ONCE VAX IM 03/29/19 09:00 03/29/19 09:05 DC 03/29/19 09:44 Potassium Chloride (Klor-Con) 40 meq 1X ONCE PO 03/29/19 11:00 03/29/19 11:01 DC 03/29/19 11:59 Sodium Chloride 1,000 ml @ 50 mls/hr Q20H IV 03/29/19 10:45 03/29/19 11:59 Levofloxacin/ Dextrose 100 ml @ 100 mls/hr Q24H IV 03/29/19 11:00 04/02/19 10:59 03/29/19 11:58 JIGNA MARCUS III DO Mar 29, 2019 12:53
--- NOTE | 2019-03-29 14:33 | NUR ---
SS following for discharge planning. SS reviewed pt chart. Pt is from home and is currently on room air. SS will continue to follow for discharge planning.
[2019-03-29 15:00] VITALS: BP 117/64
[2019-03-29] MEDS: HYDROcodone/APAP 5/325MG 1 TAB TABLET PO PRN ×2 (15:22→21:54)
[2019-03-29] MEDS ORDERED: RIVAROXABAN 10 MG TABLET. PO SCH ×2 (17:00)
[2019-03-29 19:30] VITALS: BP 116/68
[2019-03-29] MEDS: traZODone 100 MG TABLET. PO SCH (21:52)
[2019-03-29 23:59] VITALS: BP 100/55
[2019-03-30] VITALS (13 sets, daily range): BP systolic 109–150; BP diastolic 58–78
[2019-03-30 05:12] LABS: BASO % 1 % (0-3); EOS # 0.3 x10^3/uL (0.0-0.7); EOS % 4 % (0-3); HEMATOCRIT 32.6 % (36.0-47.0); HEMOGLOBIN 10.8 g/dL (12.0-15.5); LYMPH # 2.5 x10^3/uL (1.0-4.8); LYMPH % 33 % (24-48); MEAN CORPUSCULAR HEMOGLOBIN 28 pg (25-35); MEAN CORPUSCULAR HGB CONC 33 g/dL (31-37); MEAN CORPUSCULAR VOLUME 83 fL (79-100); MONO # 0.7 x10^3/uL (0.0-1.1); MONO % 9 % (0-9); NEUT % 53 % (31-73); PLATELET COUNT 291 x10^3/uL (140-400); RED BLOOD COUNT 3.93 x10^6/uL (3.50-5.40); RED CELL DISTRIBUTION WIDTH 14.7 % (11.5-14.5); WHITE BLOOD COUNT 7.6 x10^3/uL (4.0-11.0)
[2019-03-30] MEDS: LEVOTHYROXINE 100 MCG TABLET PO SCH (06:10)
[2019-03-30] MEDS: IV NORMAL SALINE 1000ML BAG 1,000 ML IV SCH ×3 (06:12→11:20)
[2019-03-30 06:18] LABS: ALBUMIN 3.2 g/dL (3.4-5.0); ALBUMIN/GLOBULIN RATIO 0.9 (1.0-1.7); CALCIUM 8.7 mg/dL (8.5-10.1); CREATININE 1.1 mg/dL (0.6-1.0); GFR 48.8; POTASSIUM 4.1 mmol/L (3.5-5.1); TOTAL BILIRUBIN 0.2 mg/dL (0.2-1.0); TOTAL PROTEIN 6.9 g/dL (6.4-8.2)
[2019-03-30] MEDS ORDERED: LIDOCAINE 1% PF 2 ML VIAL. ONE (07:34)
[2019-03-30] MEDS ORDERED: IOHEXOL 300 MG/ML 100ML VIAL. ONE (07:34)
[2019-03-30] MEDS ORDERED: NITROGLYCERIN 200 MCG/2 ML SYRINGE FOR CATH/VASC LAB. ONE (08:41)
[2019-03-30] MEDS ORDERED: fentaNYL PF VIAL 100 MCG/2 ML VIAL ONE (08:41)
[2019-03-30] MEDS ORDERED: HEPARIN for IV BOLUS 10,000 UNIT/10 ML VIAL. ONE (08:41)
[2019-03-30] MEDS ORDERED: VERAPAMIL 5 MG/2 ML VIAL. ONE ×2 (08:41→09:00)
[2019-03-30] MEDS ORDERED: MIDAZOLAM HCL/PF 5 MG/5 ML VIAL. ONE (08:41)
[2019-03-30] MEDS: METOPROLOL SUCC 24HR ER 100 MG TAB.ER.24H. PO SCH (09:00)
[2019-03-30] MEDS: amLODIPine BESYLATE 10 MG TABLET PO SCH (09:00)
[2019-03-30] MEDS: ASPIRIN CHEWABLE 81 MG TABLET. PO SCH (09:00)
[2019-03-30] MEDS: CITALOPRAM 20 MG TABLET. PO SCH (09:00)
[2019-03-30] MEDS ORDERED: LIDOCAINE 1% Multi-Dose 20 ML VIAL. ONE (09:25)
[2019-03-30] MEDS ORDERED: IOHEXOL 300 MG/ML 100ML VIAL. IART ONE (09:30)
[2019-03-30] MEDS ORDERED: NITROGLYCERIN 200 MCG/2 ML SYRINGE FOR CATH/VASC LAB. IART ONE (09:30)
[2019-03-30] MEDS ORDERED: fentaNYL PF VIAL 100 MCG/2 ML VIAL IV ONE (09:30)
[2019-03-30] MEDS ORDERED: LIDOCAINE 1% PF 2 ML VIAL. INJ ONE (09:30)
[2019-03-30] MEDS ORDERED: VERAPAMIL 5 MG/2 ML VIAL. IART ONE (09:30)
[2019-03-30] MEDS ORDERED: HEPARIN for IV BOLUS 10,000 UNIT/10 ML VIAL. IART ONE (09:30)
[2019-03-30] MEDS ORDERED: LIDOCAINE 1% Multi-Dose 20 ML VIAL. INJ ONE (09:30)
[2019-03-30] MEDS ORDERED: MIDAZOLAM HCL/PF 5 MG/5 ML VIAL. IV ONE (09:30)
[2019-03-30] MEDS ORDERED: HEPARIN for IV BOLUS 10,000 UNIT/10 ML VIAL. IV ONE (10:00)
[2019-03-30] MEDS ORDERED: ONDANSETRON PF 4 MG/2 ML VIAL. ONE (10:06)
[2019-03-30] MEDS: ONDANSETRON PF 4 MG/2 ML VIAL. IV PRN (10:09)
[2019-03-30] MEDS ORDERED: IV 1/2 NORMAL SALINE 1,000 ML IV SCH (10:14)
--- NOTE | 2019-03-30 10:14 | PDOC ---
MODERATE SEDATION ASSESSMENT RISKS/ALTERNATIVES Risks/Alternatives Risks and alternatives of this type of sedation and procedure discussed with: RISK/ALTERNATIVES: Patient H & P ON CHART H & P H & P on chart and reviewed for co-morbid conditions and appropriate labs. H&P ON CHART: Yes STATUS PREG STATUS ASSESSED: N/A MEDS/ALLERGIES REVIEWED Meds/Allergies Reviewed Medications and Allergies including time and route of recently administered narcotics and sedatives. MEDS/ALLERGIES REVIEWED: Yes ASA RATING ASA RATING: II AIRWAY ASSESSMENT Airway Assessment Airway patency, oral function limitations, presence of caps, crowns, dentures, partials, and ability to extend neck assessed. AIRWAY ASSESSMENT: Yes MALLAMPATI SCORE MALLAMPATI SCORE: II PRE-SEDATION ASSESSMENT PRE-SEDATION ASSESSMENT: Yes HARRY PORTER MD Mar 30, 2019 10:14
[2019-03-30] MEDS ORDERED: NITROGLYCERIN SUBLINGUAL 0.4 MG BOTTLE OF 25. SL PRN (10:15)
--- NOTE | 2019-03-30 10:22 | CARD ---
MR#: [id number] Date of Study: 03/30/2019 Ordering Physician: CINDI SELBY, Referring Physician: CINDI SELBY, Tech: RT Leidy (R) APPROVED REPORT Technologist: Marianne Campos RT (R) Nurse: Sonia Doan R.N. Procedure(s) performed: 1. Left heart catheterization and selective coronary angiography 2. Instant wave free ratio (IFR) measurement to right coronary artery stenosis fluoro time: 10.9 min dose: 52 Gycm2 contrast: 138 ml moderate sedation: 54 MIN INDICATION The indication(s) include : unstable angina . CSHA Clinical Frailty Scale CSHA Clinical Frailty Scale: Managing Well Heart Failure Heart Failure: No PROCEDURE NARRATIVE After explaining the risks, benefits and alternative options, informed consent was obtained from james ent. Patient was brought to the cardiac Personal Insurance Advisor and her right groin was prepped and draped in the us ual fashion. 20 mL of 2% lidocaine was infiltrated into the skin and subcutaneous tissues for local a nesthesia. Arterial access was obtained in the right common femoral artery and a 6 [place] sheath was inserted. 6 [place] JR4 catheter was used to perform selective angiography of the right coronary arter y. After initial unsuccessful attempts at engaging the left coronary artery with 6 [place] JL4, 6 Fren ch MPA 1 catheters, this was successfully engaged with a 6 [place] AL 0.75 guide catheter and selectiv e angiography was performed. LVEDP and transaortic gradients remeasured. Left ventriculography was no t performed since 2-D echo this admission showed EF 55-60%. Since patient was found to have angiographically borderline significant lesion involving the distal s egment of the right coronary artery, a decision was made to perform physiologic assessment using Inst ant wave free ratio (IFR) measurement. The right coronary artery was engaged with a 6 [place] JR4 guid e catheter and the stenosis was crossed with a [place] verrata PressureWire. IFR measurement was made that was insignificant at 0.96. Hence no intervention was performed. Patient tolerated the procedure well. Hemostasis was achieved using Angio-Seal. There were no immediate complications. FINDINGS 1. Hemodynamics: Left ventricle end-diastolic pressure 14 mmHg. No pullback gradient across the aor tic valve. 2. Coronary angiography: a. The left main coronary artery arose from the left sinus of Valsalva, gave rise to the left anteri or descending and left circumflex arteries and did not show any significant stenosis. b. The left anterior descending artery showed moderate diffuse disease in the mid to distal segments without any critical lesions. c. The left circumflex artery did not show any significant stenosis. d. The right coronary artery arose from the right sinus of Valsalva and showed 50% stenosis involvin g the distal segment there was physiologically insignificant based on IFR measurement of 0.96. Conclusion Nonobstructive coronary artery disease involving the right coronary artery, confirmed to be physiolog ically insignificant based on IFR measurement. Recommendations Medical Therapy Signed by : Gato Agarwal, Electronically Approved : 03/30/2019 10:22:05
[2019-03-30] MEDS: HYDROcodone/APAP 5/325MG 1 TAB TABLET PO PRN (10:41)
--- NOTE | 2019-03-30 11:14 | NUR ---
SS following up with referral for advanced directive information. SS met with pt and discussed. Pt completed healthcare POA. Copy placed on chart. Pt is currently on room air. No discharge needs noted at this time. SS will continue to follow for discharge planning.
--- NOTE | 2019-03-30 11:42 | PDOC ---
SUBJECTIVE ROS S/P Cardiac cath this am , no complaints OBJECTIVE Vital Signs Vital Signs Date Time Temp Pulse Resp B/P (MAP) Pulse Ox O2 Delivery O2 Flow Rate FiO2 03/30/19 10:41 Room Air 03/30/19 10:40 97.9 72 16 127/59 (81) 94 97.9 03/30/19 10:09 2.0 I & 0 Intake and Output 03/30/19 07:02 Intake Total 1356.9 ml Output Total 280 ml Balance 1076.9 ml Intake Oral 490 ml IV Total 866.9 ml Output Urine Total 280 ml # Voids 353 # Bowel Movements 1 PHYSICAL EXAM Physical Exam General: NAD HEENT: OM moist Neck supple Lungs: Clear to auscultation, Non labored Heart RRR Abdomen: Soft, No tenderness Extremities: No cyanosis, No edema Skin: No Rash , No significant lesion Neuro: grossly normal Psych/Mental Status: Mental status NL, Mood NL NO Palmer, No CVA or SP tenderness DIAGNOSIS/ASSESSMENT Assessment & Plan [id number] /Vasomotor / Use of NSAID renal function improved stable 1.1 with eGFR <60 , Cr peaked at 1.6 E-Lytes and acid base stable, Supportive care , Monitor s/p cardiac cath this am , IV Hydration Advised pt to fu BMP with PCP next week - she has appt with PCP on 04/02 ? 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 Hx of sarcoidosis HTN: controlled On losartan UTI: per PCP Discussed A/P with Pt and RN at bedside COMMENT/RELEVANT DATA Meds Current Medications Medications (Trade) Dose Ordered Sig/Lexii Start Time Stop Time Status Last Admin Dose Admin Acetaminophen (Tylenol) 325 mg PRN Q6HRS PRN 03/28/19 19:15 Acetaminophen/ Hydrocodone Bitart (Lortab 5/325) 1 tab PRN Q6HRS PRN 03/28/19 19:15 03/30/19 10:41 1 TAB Al Hydroxide/Mg Hydroxide (Mylanta Plus Xs) 30 ml PRN DAILY PRN 03/28/19 18:30 Albuterol Sulfate (Ventolin Neb Soln) 2.5 mg PRN Q4HRS PRN 03/29/19 08:15 Albuterol/ Ipratropium (Duoneb) 3 ml Q4HRS 03/28/19 20:00 03/29/19 07:40 DC 03/29/19 04:00 3 ML Amlodipine Besylate (Norvasc) 10 mg DAILY 03/29/19 09:00 03/29/19 09:41 10 MG Aspirin (Children'S Aspirin) 81 mg DAILY 03/29/19 09:00 03/29/19 09:41 81 MG Citalopram Hydrobromide (CeleXA) 40 mg DAILY 03/29/19 09:00 03/29/19 09:42 40 MG Clonidine HCl (Catapres) 0.1 mg PRN Q6HRS PRN 03/28/19 18:30 Desipramine HCl (Norpramin) 10 mg BID 03/29/19 09:00 03/29/19 21:52 10 MG Docusate Sodium (Colace) 100 mg PRN BID PRN 03/28/19 18:30 Enoxaparin Sodium (Lovenox 40mg Syringe) 40 mg DAILY 03/29/19 09:00 03/28/19 19:40 DC Fentanyl Citrate (Fentanyl 2ml Vial) 100 mcg 1X ONCE 03/30/19 09:30 03/30/19 09:31 DC 03/30/19 10:01 75 MCG Heparin Sodium (Porcine) (Heparin Sodium) 5,000 unit 1X ONCE 03/30/19 10:00 03/30/19 10:01 DC 03/30/19 10:03 5,000 UNIT Heparin Sodium/ Sodium Chloride (HEPARIN for ARTERIAL LINE FLUSH) 1,000 unit 1X ONCE 03/30/19 09:30 03/30/19 09:31 DC 03/30/19 10:00 1,000 UNIT Influenza Virus Vaccine Quadrival (Afluria Quad 2019-20 (3yr Up) Syringe) 0.5 ml ONCE ONCE 03/29/19 09:00 03/29/19 09:05 DC 03/29/19 09:44 0.5 ML Info (FLU VACCINE SCREEN per RX) 1 each PRN 1X PRN 03/29/19 04:45 Cancel Iohexol (Omnipaque 300 Mg/ml) 100 ml 1X ONCE 03/30/19 09:30 03/30/19 09:31 DC 03/30/19 10:00 138 ML Isosorbide Mononitrate (Imdur) 30 mg DAILY 03/29/19 09:00 03/29/19 09:41 30 MG Levofloxacin/ Dextrose 100 ml @ 100 mls/hr Q24H 03/29/19 11:00 04/02/19 10:59 03/30/19 10:48 100 MLS/HR Levothyroxine Sodium (Synthroid) 100 mcg DAILY06 03/29/19 06:00 03/30/19 06:10 100 MCG Lidocaine HCl (Lidocaine 1% 20ml Vial) 20 ml 1X ONCE 03/30/19 09:30 03/30/19 09:31 DC 03/30/19 10:01 20 ML Lidocaine HCl (Xylocaine-Mpf 1% 2ml Vial) 2 ml 1X ONCE 03/30/19 09:30 03/30/19 09:29 DC Loperamide HCl (Imodium) 2 mg PRN TID PRN 03/28/19 19:15 Lorazepam (Ativan) 0.5 mg PRN Q4HRS PRN 03/28/19 18:30 Losartan Potassium (Cozaar) 100 mg DAILY 03/29/19 09:00 03/29/19 09:42 100 MG Metoprolol Succinate (Toprol Xl) 100 mg DAILY 03/29/19 09:00 03/29/19 09:41 100 MG Midazolam HCl (Versed) 5 mg 1X ONCE 03/30/19 09:30 03/30/19 09:31 DC 03/30/19 10:02 3 MG Nitroglycerin (Nitroglycerin) 200 mcg 1X ONCE 03/30/19 09:30 03/30/19 09:29 DC Nitroglycerin (Nitrostat) 0.4 mg PRN Q5MIN PRN 03/30/19 10:15 Ondansetron HCl (Zofran) 4 mg STK-MED ONCE 03/30/19 10:06 03/30/19 10:06 DC Potassium Chloride (Klor-Con) 40 meq 1X ONCE 03/29/19 11:30 03/29/19 11:31 DC Rivaroxaban (Xarelto) 20 mg DAILY@1700 03/31/19 17:00 Sodium Chloride 1,000 ml @ 60 mls/hr [id number] 03/30/19 10:14 03/30/19 10:41 60 MLS/HR Sodium Chloride (Normal Saline Flush) 3 ml QSHIFT PRN 03/28/19 18:30 Trazodone HCl (Desyrel) 100 mg HS 03/28/19 21:00 03/29/19 21:52 100 MG Verapamil HCl (Verapamil) 2.5 mg 1X ONCE 03/30/19 09:30 03/30/19 09:29 DC Zolpidem Tartrate (Ambien) 5 mg PRN QHS PRN 03/28/19 18:30 Lab Laboratory Tests Test 03/30/19 04:30 White Blood Count 7.6 x10^3/uL (4.0-11.0) Red Blood Count 3.93 x10^6/uL (3.50-5.40) Hemoglobin 10.8 g/dL (12.0-15.5) Hematocrit 32.6 % (36.0-47.0) Mean Corpuscular Volume 83 fL (79-100) Mean Corpuscular Hemoglobin 28 pg (25-35) Mean Corpuscular Hemoglobin Concent 33 g/dL (31-37) Red Cell Distribution Width 14.7 % (11.5-14.5) Platelet Count 291 x10^3/uL (140-400) Neutrophils (%) (Auto) 53 % (31-73) Lymphocytes (%) (Auto) 33 % (24-48) Monocytes (%) (Auto) 9 % (0-9) Eosinophils (%) (Auto) 4 % (0-3) Basophils (%) (Auto) 1 % (0-3) Neutrophils # (Auto) 4.0 x10^3/uL (1.8-7.7) Lymphocytes # (Auto) 2.5 x10^3/uL (1.0-4.8) Monocytes # (Auto) 0.7 x10^3/uL (0.0-1.1) Eosinophils # (Auto) 0.3 x10^3/uL (0.0-0.7) Basophils # (Auto) 0.0 x10^3/uL (0.0-0.2) Sodium Level 139 mmol/L (136-145) Potassium Level 4.1 mmol/L (3.5-5.1) Chloride Level 105 mmol/L (98-107) Carbon Dioxide Level 25 mmol/L (21-32) Anion Gap 9 (6-14) Blood Urea Nitrogen 23 mg/dL (7-20) Creatinine 1.1 mg/dL (0.6-1.0) Estimated GFR (Cockcroft-Gault) 48.8 BUN/Creatinine Ratio 21 (6-20) Glucose Level 106 mg/dL (70-99) Calcium Level 8.7 mg/dL (8.5-10.1) Total Bilirubin 0.2 mg/dL (0.2-1.0) Aspartate Amino Transf (AST/SGOT) 15 U/L (15-37) Alanine Aminotransferase (ALT/SGPT) 18 U/L (14-59) Alkaline Phosphatase 76 U/L (46-116) Total Protein 6.9 g/dL (6.4-8.2) Albumin 3.2 g/dL (3.4-5.0) Albumin/Globulin Ratio 0.9 (1.0-1.7) Results All relevant outside records, renal labs, imaging studies, telemetry/EKG's were reviewed. MAKAYLA RUIZ MD Mar 30, 2019 11:42
[2019-03-30] MEDS ORDERED: LEVO250T7 PO (13:13)
[2019-03-30] MEDS ORDERED: TRAM50TA PO (13:14)
--- NOTE | 2019-03-30 13:16 | PDOC3 ---
Discharge Summary Visit Information Date of Admission: Mar 28, 2019 Date of Discharge: Mar 30, 2019 Final Diagnosis CHEST PAIN, rib injury HX CAD Recent fall in shower 2 days [employer]ATIONS [employer] Acute left rib cage fractures. SEC TO FALL ckd stage 3 remote PE ON XARELTO UTI angina, acute on chronic systolic CHF Problems Medical Problems: (1) Acute chest pain Status: Acute (2) Fall at home Status: Acute (3) Renal insufficiency Status: Acute (4) Ribs, multiple fractures Status: Acute Brief Hospital Course Allergies Allergies Coded Allergies Type Severity Reaction Last Updated Verified Penicillins Allergy Intermediate 03/28/19 Yes Ifupzec-Vcv-Joe Reductase Inhibitor Allergy Intermediate 03/28/19 Yes adhesive tape Allergy Intermediate 03/28/19 Yes ampicillin Allergy Intermediate 03/28/19 Yes aripiprazole Allergy Intermediate 03/28/19 Yes atorvastatin Allergy Intermediate 03/28/19 Yes bupropion Allergy Intermediate 03/28/19 Yes cephalexin Allergy Intermediate 03/28/19 Yes divalproex sodium Allergy Intermediate 03/28/19 Yes gatifloxacin Allergy Intermediate 03/28/19 Yes latex Allergy Intermediate 03/28/19 Yes oxaprozin Allergy Intermediate 03/28/19 Yes rofecoxib Allergy Intermediate 03/28/19 Yes tetracycline Allergy Intermediate 03/28/19 Yes Uncoded Allergies Type Severity Reaction Last Updated Verified bandaids Allergy Unknown 03/28/19 myacins Allergy Unknown 03/28/19 Vital Signs Vital Signs Date Time Temp Pulse Resp B/P (MAP) Pulse Ox O2 Delivery O2 Flow Rate FiO2 03/30/19 10:41 Room Air 03/30/19 10:40 97.9 72 16 127/59 (81) 94 97.9 03/30/19 10:09 2.0 Lab Results Laboratory Tests Test 03/28/19 15:40 03/28/19 20:05 03/28/19 21:40 03/28/19 23:20 White Blood Count 12.0 x10^3/uL (4.0-11.0) Red Blood Count 4.62 x10^6/uL (3.50-5.40) Hemoglobin 12.4 g/dL (12.0-15.5) Hematocrit 38.0 % (36.0-47.0) Mean Corpuscular Volume 82 fL (79-100) Mean Corpuscular Hemoglobin 27 pg (25-35) Mean Corpuscular Hemoglobin Concent 33 g/dL (31-37) Red Cell Distribution Width 14.9 % (11.5-14.5) Platelet Count 355 x10^3/uL (140-400) Neutrophils (%) (Auto) 71 % (31-73) Lymphocytes (%) (Auto) 18 % (24-48) Monocytes (%) (Auto) 8 % (0-9) Eosinophils (%) (Auto) 2 % (0-3) Basophils (%) (Auto) 1 % (0-3) Neutrophils # (Auto) 8.6 x10^3/uL (1.8-7.7) Lymphocytes # (Auto) 2.2 x10^3/uL (1.0-4.8) Monocytes # (Auto) 1.0 x10^3/uL (0.0-1.1) Eosinophils # (Auto) 0.2 x10^3/uL (0.0-0.7) Basophils # (Auto) 0.1 x10^3/uL (0.0-0.2) D-Dimer (Charity) < 0.27 ug/mlFEU Sodium Level 138 mmol/L (136-145) Potassium Level 3.6 mmol/L (3.5-5.1) Chloride Level 101 mmol/L (98-107) Carbon Dioxide Level 27 mmol/L (21-32) Anion Gap 10 (6-14) Blood Urea Nitrogen 31 mg/dL (7-20) Creatinine 1.6 mg/dL (0.6-1.0) Estimated GFR (Cockcroft-Gault) 31.7 BUN/Creatinine Ratio 19 (6-20) Glucose Level 130 mg/dL (70-99) Calcium Level 9.8 mg/dL (8.5-10.1) Magnesium Level 1.9 mg/dL (1.8-2.4) Total Bilirubin 0.2 mg/dL (0.2-1.0) Aspartate Amino Transf (AST/SGOT) 22 U/L (15-37) Alanine Aminotransferase (ALT/SGPT) 23 U/L (14-59) Alkaline Phosphatase 95 U/L (46-116) Creatine Kinase 151 U/L (26-192) Troponin I Quantitative < 0.017 ng/mL (0.000-0.055) < 0.017 ng/mL (0.000-0.055) < 0.017 ng/mL (0.000-0.055) HT-Drw-S-Type Natriuretic Peptide 67 pg/mL (0-124) Total Protein 8.3 g/dL (6.4-8.2) Albumin 4.1 g/dL (3.4-5.0) Albumin/Globulin Ratio 1.0 (1.0-1.7) Lipase 94 U/L (73-393) Urine Collection Type Unknown Urine Color Yellow Urine Clarity Cloudy Urine pH 5.0 Urine Specific [place] 1.025 Urine Protein 30 mg/dL (NEG-TRACE) Urine Glucose (UA) Negative mg/dL (NEG) Urine Ketones (Stick) Negative mg/dL (NEG) Urine Blood Moderate (NEG) Urine Nitrite Positive (NEG) Urine Bilirubin Negative (NEG) Urine Urobilinogen Dipstick 0.2 mg/dL (0.2 mg/dL) Urine Leukocyte Esterase Large (NEG) Urine RBC 1-2 /HPF (0-2) Urine WBC Tntc /HPF (0-4) Urine Squamous Epithelial Cells Many /LPF Urine Bacteria Many /HPF (0-FEW) Urine Hyaline Casts Occasional /HPF Test 03/29/19 05:00 03/30/19 04:30 White Blood Count 8.8 x10^3/uL (4.0-11.0) 7.6 x10^3/uL (4.0-11.0) Red Blood Count 4.40 x10^6/uL (3.50-5.40) 3.93 x10^6/uL (3.50-5.40) Hemoglobin 12.1 g/dL (12.0-15.5) 10.8 g/dL (12.0-15.5) Hematocrit 36.4 % (36.0-47.0) 32.6 % (36.0-47.0) Mean Corpuscular Volume 83 fL (79-100) 83 fL (79-100) Mean Corpuscular Hemoglobin 27 pg (25-35) 28 pg (25-35) Mean Corpuscular Hemoglobin Concent 33 g/dL (31-37) 33 g/dL (31-37) Red Cell Distribution Width 15.0 % (11.5-14.5) 14.7 % (11.5-14.5) Platelet Count 309 x10^3/uL (140-400) 291 x10^3/uL (140-400) Neutrophils (%) (Auto) 44 % (31-73) 53 % (31-73) Lymphocytes (%) (Auto) 46 % (24-48) 33 % (24-48) Monocytes (%) (Auto) 8 % (0-9) 9 % (0-9) Eosinophils (%) (Auto) 3 % (0-3) 4 % (0-3) Basophils (%) (Auto) 0 % (0-3) 1 % (0-3) Neutrophils # (Auto) 3.9 x10^3/uL (1.8-7.7) 4.0 x10^3/uL (1.8-7.7) Lymphocytes # (Auto) 4.0 x10^3/uL (1.0-4.8) 2.5 x10^3/uL (1.0-4.8) Monocytes # (Auto) 0.7 x10^3/uL (0.0-1.1) 0.7 x10^3/uL (0.0-1.1) Eosinophils # (Auto) 0.2 x10^3/uL (0.0-0.7) 0.3 x10^3/uL (0.0-0.7) Basophils # (Auto) 0.0 x10^3/uL (0.0-0.2) 0.0 x10^3/uL (0.0-0.2) Sodium Level 139 mmol/L (136-145) 139 mmol/L (136-145) Potassium Level 3.0 mmol/L (3.5-5.1) 4.1 mmol/L (3.5-5.1) Chloride Level 102 mmol/L (98-107) 105 mmol/L (98-107) Carbon Dioxide Level 26 mmol/L (21-32) 25 mmol/L (21-32) Anion Gap 11 (6-14) 9 (6-14) Blood Urea Nitrogen 25 mg/dL (7-20) 23 mg/dL (7-20) Creatinine 1.1 mg/dL (0.6-1.0) 1.1 mg/dL (0.6-1.0) Estimated GFR (Cockcroft-Gault) 48.8 48.8 BUN/Creatinine Ratio 23 (6-20) 21 (6-20) Glucose Level 129 mg/dL (70-99) 106 mg/dL (70-99) Calcium Level 9.3 mg/dL (8.5-10.1) 8.7 mg/dL (8.5-10.1) Total Bilirubin 0.3 mg/dL (0.2-1.0) 0.2 mg/dL (0.2-1.0) Aspartate Amino Transf (AST/SGOT) 20 U/L (15-37) 15 U/L (15-37) Alanine Aminotransferase (ALT/SGPT) 19 U/L (14-59) 18 U/L (14-59) Alkaline Phosphatase 88 U/L (46-116) 76 U/L (46-116) Total Protein 7.8 g/dL (6.4-8.2) 6.9 g/dL (6.4-8.2) Albumin 3.7 g/dL (3.4-5.0) 3.2 g/dL (3.4-5.0) Albumin/Globulin Ratio 0.9 (1.0-1.7) 0.9 (1.0-1.7) Triglycerides Level 199 mg/dL (0-150) Cholesterol Level 192 mg/dL (0-200) LDL Cholesterol, Calculated 118 mg/dL (0-100) VLDL Cholesterol, Calculated 40 mg/dL (0-40) Non-HDL Cholesterol Calculated 158 mg/dL (0-129) HDL Cholesterol 34 mg/dL (40-60) Cholesterol/HDL Ratio 5.6 Laboratory Tests Test 03/30/19 04:30 White Blood Count 7.6 x10^3/uL (4.0-11.0) Red Blood Count 3.93 x10^6/uL (3.50-5.40) Hemoglobin 10.8 g/dL (12.0-15.5) Hematocrit 32.6 % (36.0-47.0) Mean Corpuscular Volume 83 fL (79-100) Mean Corpuscular Hemoglobin 28 pg (25-35) Mean Corpuscular Hemoglobin Concent 33 g/dL (31-37) Red Cell Distribution Width 14.7 % (11.5-14.5) Platelet Count 291 x10^3/uL (140-400) Neutrophils (%) (Auto) 53 % (31-73) Lymphocytes (%) (Auto) 33 % (24-48) Monocytes (%) (Auto) 9 % (0-9) Eosinophils (%) (Auto) 4 % (0-3) Basophils (%) (Auto) 1 % (0-3) Neutrophils # (Auto) 4.0 x10^3/uL (1.8-7.7) Lymphocytes # (Auto) 2.5 x10^3/uL (1.0-4.8) Monocytes # (Auto) 0.7 x10^3/uL (0.0-1.1) Eosinophils # (Auto) 0.3 x10^3/uL (0.0-0.7) Basophils # (Auto) 0.0 x10^3/uL (0.0-0.2) Sodium Level 139 mmol/L (136-145) Potassium Level 4.1 mmol/L (3.5-5.1) Chloride Level 105 mmol/L (98-107) Carbon Dioxide Level 25 mmol/L (21-32) Anion Gap 9 (6-14) Blood Urea Nitrogen 23 mg/dL (7-20) Creatinine 1.1 mg/dL (0.6-1.0) Estimated GFR (Cockcroft-Gault) 48.8 BUN/Creatinine Ratio 21 (6-20) Glucose Level 106 mg/dL (70-99) Calcium Level 8.7 mg/dL (8.5-10.1) Total Bilirubin 0.2 mg/dL (0.2-1.0) Aspartate Amino Transf (AST/SGOT) 15 U/L (15-37) Alanine Aminotransferase (ALT/SGPT) 18 U/L (14-59) Alkaline Phosphatase 76 U/L (46-116) Total Protein 6.9 g/dL (6.4-8.2) Albumin 3.2 g/dL (3.4-5.0) Albumin/Globulin Ratio 0.9 (1.0-1.7) Brief Hospital Course Ms. Herrera is a 73 old female, amdt with chest darlene after fall, rib injury but high risk, and angina and CHF sx, cardiac cath, mod disease, no intervnetino needed, f/u CV UTI, abx refer to cardio pulm rehab for CHF Discharge Information Condition at Discharge: Improved Follow Up: Weeks Disposition/Orders: D/C to Home Scheduled Amlodipine Besylate (Amlodipine Besylate) 10 Mg Tablet, 10 MG PO DAILY for HTN, (Reported) Entered as Reported by: YASMANI WHATLEY on 03/28/191819 Last Action: Continued on 03/28/191911 by BABAK TINEO Aspirin (Aspirin) 81 Mg Tab.chew, 1 TAB PO DAILY for CAD, #90 Ref 3 (Reported) Entered as Reported by: YASMANI WHATLEY on 03/28/191819 Last Action: Continued on 03/28/191911 by BABAK TINEO Desipramine Hcl (Desipramine Hcl) 10 Mg Tablet, 10 MG PO BID for depression, (Reported) Entered as Reported by: KAREEM MARTINEZ on 03/28/191946 Last Action: Continued on 03/28/191947 by KAREEM MARTINEZ Escitalopram Oxalate (Escitalopram Oxalate) 20 Mg Tablet, 20 MG PO DAILY for ANTI-DEPRESSANT, Ref 0 (Reported) Entered as Reported by: YASMANI WHATLEY on 03/28/191819 Last Action: Converted on 03/28/191911 by BABAK TINEO Isosorbide Mononitrate (Isosorbide Mononitrate Er) 30 Mg Tab.er.24h, 30 MG PO DAILY for Angina, CAD, (Reported) Entered as Reported by: YASMANI WHATLEY on 03/28/191819 Last Action: Continued on 03/28/191911 by BABAK TINEO Levofloxacin (Levofloxacin) 250 Mg Tablet, 250 MG PO DAILY for uti, #5 Prescribed by: MIMI BARRIENTOS on 03/30/19 1313 Levothyroxine Sodium (Levothyroxine Sodium) 100 Mcg Tablet, 100 MCG PO DAILYAC for THYROID SUPPLEMENT, #30 Ref 0 (Reported) Entered as Reported by: YASMANI WHATLEY on 03/28/191819 Last Action: Continued on 03/28/191911 by BABAK TINEO Losartan Potassium (Losartan Potassium) 100 Mg Tablet, 100 MG PO DAILY for HYPE RTENSION, (Reported) Entered as Reported by: YASMANI WHATLEY on 03/28/191819 Last Action: Converted on 03/28/191911 by BABAK TINEO Melatonin (Melatonin) 3 Mg Tablet, 1 TAB PO QHS for Insomnia, #30 (Reported) Entered as Reported by: YASMANI WHATLEY on 03/28/191819 Last Action: New Order on 03/28/191819 by YASMANI WHATLEY Metoprolol Succinate (Metoprolol Succinate ( Xl )) 100 Mg Tab.er.24h, 100 MG PO DAILY for FOR HYPERTENSION, #30 Ref 0 (Reported) Entered as Reported by: YASMANI WHATLEY on 03/28/191819 Last Action: Continued on 03/28/191911 by BABAK TINEO Rivaroxaban (Xarelto) 20 Mg Tablet, 20 MG PO DAILY for DVT, PE's, (Reported) Entered as Reported by: YASMANI WHATLEY on 03/28/191819 Last Action: Converted on 03/28/191911 by BABAK TINEO Trazodone Hcl (Trazodone Hcl) 100 Mg Tablet, 100 MG PO HS for Insomnia, (Reported) Entered as Reported by: YASMANI WHATLEY on 03/28/191819 Last Action: Continued on 03/28/191911 by BABAK TINEO Scheduled PRN Acetaminophen (Tylenol) 325 Mg Tablet, 325 MG PO PRN PRN for PAIN, (Reported) Entered as Reported by: YASMANI WHATLEY on 03/28/191819 Last Action: Continued on 03/28/191911 by BABAK TINEO Hydrocodone Bit/Acetaminophen (Hydrocodone-Apap 5-325 ) 1 Tab Tablet, 1 TAB PO PRN Q6HRS PRN for PAIN, Ref 0 (Reported) Entered as Reported by: YASMANI WHATLEY on 03/28/191819 Last Action: Continued on 03/28/191911 by BABAK TINEO Loperamide Hcl (Loperamide) 2 Mg Capsule, 2 MG PO PRN PRN for DIARRHEA, (Repo rted) Entered as Reported by: YASMANI WHATLEY on 03/28/191819 Last Action: Continued on 03/28/191911 by BABAK TINEO Nitroglycerin (Nitrostat) 0.4 Mg Tab.subl, 0.4 MG SL PRN Q5MIN PRN for CHEST PAIN, (Reported) Entered as Reported by: YASMANI WHATLEY on 03/28/191819 Last Action: Continued on 03/28/191911 by BABAK TINEO Tramadol Hcl (Tramadol Hcl) 50 Mg Tablet, 50 MG PO Q6HRS PRN for PAIN, #25 Prescribed by: MIMI BARRIENTOS on 03/30/19 1314 Patient Instructions Patient Instructions > 30 min face to face, talked to daughter x3 MIMI BARRIENTOS MD Mar 30, 2019 13:16
[2019-03-30] MEDS: LOSARTAN POTASSIUM 50 MG TABLET. PO SCH (13:40)
[2019-03-30] MEDS: ISOSORBIDE MONONITRATE ER 30 MG TAB.ER.24H PO SCH (13:41)
[2019-03-30] MEDS: DESIPRAMINE HCL 10 MG TABLET PO SCH (13:43)
--- NOTE | 2019-03-30 17:11 | NUR ---
Discharge Note: GEMMA STROUD Discharge instructions and discharge home medications reviewed with Patient and Daughter and a copy given. All questions have been answered and understanding verbalized. The following instructions and handouts were given: CP, CARDIAC REHAB, FALL PREVENTION, POST CARDIAC CATH, TRAMADOL, LEVAQUIN Discontinued lines and drains: Peripheral IV intact. Patient discharged to Home or Self Care with Family Member via Wheelchair
[2019-03-30] MEDS ORDERED: LACTOBACILLUS RHAMNOSUS GG 1 CAPSULE. PO SCH (21:00)
[2019-03-31] MEDS ORDERED: RIVAROXABAN 10 MG TABLET. PO SCH (17:00)
== END 2019-03-30 16:42 | disposition home or self-care (01) | DRG 286 ==
LOC: ER 15:08 → 2 NORTH 16:20
PROVIDERS: ADMIT Family Medicine; ATTEND Family Medicine
PROC: 4A023N7 Measurement of Cardiac Sampling and Pressure, Left Heart, Percutaneous Approach (ICD-10-PCS; principal; 2019-03-30)
PROC: B2111ZZ Fluoroscopy of Multiple Coronary Arteries using Low Osmolar Contrast (ICD-10-PCS; 2019-03-30)
PROC: 4A033BC Measurement of Arterial Pressure, Coronary, Percutaneous Approach (ICD-10-PCS; 2019-03-30)
DX: I25.119 Atherosclerotic heart disease of native coronary artery with unspecified angina pectoris (principal); N17.0 Acute kidney failure with tubular necrosis; I50.23 Acute on chronic systolic (congestive) heart failure; I13.0 Hypertensive heart and chronic kidney disease with heart failure and stage 1 through stage 4 chronic kidney disease, or unspecified chronic kidney disease; S22.42XA Multiple fractures of ribs, left side, initial encounter for closed fracture; N39.0 Urinary tract infection, site not specified; D86.9 Sarcoidosis, unspecified; E03.9 Hypothyroidism, unspecified; E66.9 Obesity, unspecified; E78.00 Pure hypercholesterolemia, unspecified; E78.5 Hyperlipidemia, unspecified; M79.7 Fibromyalgia; F32.9 Major depressive disorder, single episode, unspecified; G43.909 Migraine, unspecified, not intractable, without status migrainosus; M19.90 Unspecified osteoarthritis, unspecified site; E87.6 Hypokalemia; N18.3 Chronic kidney disease, stage 3 (moderate); W01.0XXA Fall on same level from slipping, tripping and stumbling without subsequent striking against object, initial encounter; Y93.89 Activity, other specified; Y92.89 Other specified places as the place of occurrence of the external cause; Y99.8 Other external cause status; Z86.73 Personal history of transient ischemic attack (TIA), and cerebral infarction without residual deficits; Z86.718 Personal history of other venous thrombosis and embolism; I25.2 Old myocardial infarction; Z95.5 Presence of coronary angioplasty implant and graft; Z86.711 Personal history of pulmonary embolism; Z79.01 Long term (current) use of anticoagulants; Z88.0 Allergy status to penicillin; Z88.8 Allergy status to other drugs, medicaments and biological substances; Z91.040 Latex allergy status; Z82.49 Family history of ischemic heart disease and other diseases of the circulatory system
CPT/HCPCS: 93458; 93571; 96374; 96375; 99285; G0269; 36415; 70450; 71101; 80053; 80061; 81001; 82550; 83690; 83735; 83880; 84484; 85025; 85379; 87086; 87186; 90471; 90686; 93005; 93306; 94640; 99152; 99153; C1760; C1769; C1887; C1892; J1644; J1956; J2250; J2405; J3010; J7030; J7620; Q9967; C1771; G0378